=== PATIENT | female | born 1965 | race Caucasian/White ===

== ENCOUNTER → 2018-09-04 15:25 | Outpatient (CLI) | payer BC, SELFPAY ==
[2018-09-04 16:07] LABS: Prothrombin Time 10.3 seconds (9.4-11.8)
[2018-09-04 16:54] LABS: Alanine Aminotransferase 158 U/L (12-78); Albumin Level 3.5 gm/dL (3.4-5.0); Albumin/Globulin Ratio 0.9 (1.1-1.8); Alkaline Phosphatase 68 U/L (46-116); Anion Gap 14.3 mEq/L (5-15); Aspartate Amino Transferase 124 U/L (15-37); Bilirubin,Total 0.2 mg/dL (0.2-1.0); Blood Urea Nitrogen 12 mg/dL (7-18); Calcium 8.8 mg/dL (8.5-10.1); Carbon Dioxide 28 mmol/L (21.0-32.0); Chloride 101 mmol/L (98-107); Creatinine,Serum 0.74 mg/dL (0.55-1.02); Estimated Glomerular Filt Rate 82 ml/min (>60); Ferritin 145 ng/mL (8-388); GFR (African American) 99 ML/MIN (>60); Glucose 183 mg/dL (74-106); Potassium 4.3 mmoL/L (3.5-5.1); Sodium 139 mmol/L (136-145); Total Protein,Serum 7.5 gm/dL (6.4-8.2)
[2018-09-04 17:39] LABS: Basophils # 0.1 K/mm3 (0-0.2); Basophils % 0.6 % (0.1-2.0); Eosinophils # 0.2 K/mm3 (0.0-0.4); Eosinophils % 1.7 % (0.1-12.0); Hematocrit 41.8 % (37.0-47.0); Hemoglobin 13.3 g/dL (12.2-16.2); Lymphocytes # 2.4 K/mm3 (0.7-4.5); Lymphocytes % 25.4 K/mm3 (10-50); Mean Corpuscular HGB Conc 31.9 g/dL (31.8-35.4); Mean Corpuscular Hemoglobin 29.4 pg (27.0-31.2); Mean Corpuscular Volume 92.2 fl (81-99); Mean Platelet Volume 7.6 fl (7.4-10.4); Monocytes # 0.6 K/mm3 (0.1-1.0); Monocytes % 6.6 % (1.7-9.3); Neutrophils # 6.1 K/mm3 (1.8-7.8); Neutrophils % 65.7 % (37.0-80.0); Platelet Count 355 K/mm3 (142-424); Red Blood Count 4.54 M/mm3 (4.20-5.40); Red Cell Distribution Width 13.6 % (11.5-17.5); White Blood Count 9.3 K/mm3 (4.8-10.8)
[2018-09-06 06:52] LABS: Iron 45 ug/dL (27-159); UIBC 340 ug/dL (131-425)
[2018-09-06 07:12] LABS: Ceruloplasmin 28.8 mg/dL (19.0-39.0); Immunoglobulin A, Qn 265 mg/dL (87-352); Immunoglobulin G, Qn 1265 mg/dL (700-1600)
[2018-09-06 16:09] LABS: Hep A Ab, IgM Negative (Negative); Hepatitis B Core Antibody IgM Negative (Negative); Hepatitis B Surface Antigen Negative (Negative)
[2018-09-07 04:56] LABS: Hepatitis C Antibody <0.1 s/co ratio (0.0-0.9); Immunoglobulin M, Qn 150 mg/dL (26-217); Iron Saturation 12 % (15-55)
[2018-09-08 07:29] LABS: Angiotensin Converting Enzyme 32 U/L (14-82)
[2018-09-08 07:30] LABS: Actin (Smooth Muscle) Antibody 15 Units (0-19); Antinuclear Antibodies, IFA Negative (.); Deamidated Gliadin Abs, IgA 5 units (0-19); Deamidated Gliadin Abs, IgG 3 units (0-19); Endomysial IgA Antibody Negative (Negative); Liver-Kidney Microsomal Ab <1.0 Units (0.0-20.0); Mitochondrial (M2) Antibody <20.0 Units (0.0-20.0); Tissue Transglutaminase IgA Ab <2 U/mL (0-3); Tissue Transglutaminase IgG Ab <2 U/mL (0-5)
[2018-09-08 10:16] LABS: ALT (SGPT) P5P 145 IU/L (0-40); AST (SGOT) P5P 142 IU/L (0-40); Alpha 2-Macroglobulins, Qn 179 mg/dL (110-276); Apolipoprotein A-1 142 mg/dL (116-209); Bilirubin, Total 0.1 mg/dL (0.0-1.2); Cholesterol, Total 185 mg/dL (100-199); Fibrosis Score 0.05 (0.00-0.21); GGT 52 IU/L (0-60); Glucose 186 mg/dL (65-99); Haptoglobin 279 mg/dL (34-200); NASH Score 0.75 (0.25); Steatosis Score 0.91 (0.00-0.30); Triglycerides 258 mg/dL (0-149)
[2018-09-09 12:39] LABS: Reticulin IgA Antibody Negative titer (Neg:<1:2.5)
[2018-09-10 15:21] LABS: Alpha-1-Antitrypsin 146 mg/dL (90-200)
== END ==
PROVIDERS: Visit Provider Nurse Practitioner Acute Care
DX: R94.5 Abnormal results of liver function studies (principal)
CPT/HCPCS: 36415; 80053; 80074; 81256; 82103; 82104; 82164; 82390; 82728; 82784; 83516; 83540; 83550; 85025; 85610; 86038; 86255; 86256; 86376

== ENCOUNTER → 2018-09-11 08:20 | Outpatient (CLI) | payer BC, SELFPAY ==
--- NOTE | 2018-09-11 08:24 | US_ITS ---
US abdomen limited History:Elevated liver enzymes Ordering Physician:Radah Brown Patient Age: 53 years Comparison:07/08/2017 Findings: Pancreas:Unremarkable. No obvious mass or abnormal fluid collection. No ductal dilatation Liver:Fatty liver. No ductal dilatation or obvious liver lesions. Appropriate directional blood flow within a nondilated portal vein Right Kidney:Unremarkable. Normal size and echogenicity. No hydronephrosis Gallbladder: Status post cholecystectomy. Common bile duct is normal 2 mm. IMPRESSION: 1. Fatty liver. 2. Otherwise negative right upper quadrant ultrasound
== END ==
PROVIDERS: PCP Internal Medicine; Visit Provider Nurse Practitioner Acute Care
DX: R94.5 Abnormal results of liver function studies (principal)
CPT/HCPCS: 76705

== ENCOUNTER → 2021-11-20 08:35 | Outpatient (CLI) | payer BC, SELFPAY | PROVIDERS: Visit Provider Nurse Practitioner | DX: Z20.822 Contact with and (suspected) exposure to COVID-19 (principal) | CPT/HCPCS: C9803; U0003; U0005 ==

== ENCOUNTER → 2021-11-23 12:08 | Outpatient (CLI) | payer BC, SELFPAY | PROVIDERS: Visit Provider Nurse Practitioner | DX: Z20.822 Contact with and (suspected) exposure to COVID-19 (principal) | CPT/HCPCS: C9803; U0003; U0005 ==

== ENCOUNTER → 2021-12-10 14:48 | Outpatient (CLI) | payer BC, SELFPAY ==
[2021-12-10 17:02] LABS: Basophils # 0.1 K/mm3 (0-0.2); Basophils % 0.9 % (0.1-2.0); Eosinophils # 0.2 K/mm3 (0.0-0.4); Eosinophils % 2.4 % (0.1-12.0); Hematocrit 42.4 % (37.0-47.0); Hemoglobin 13.3 g/dL (12.2-16.2); Lymphocytes # 3.1 K/mm3 (0.7-4.5); Lymphocytes % 36.6 % (10-50); Mean Corpuscular HGB Conc 31.4 g/dL (31.8-35.4); Mean Corpuscular Volume 95.3 fl (81-99); Mean Platelet Volume 9.4 fl (7.4-10.4); Monocytes # 0.6 K/mm3 (0.1-1.0); Monocytes % 7.3 % (1.7-9.3); Neutrophils # 4.5 K/mm3 (1.8-7.8); Neutrophils % 52.9 % (37.0-80.0); Platelet Count 349 K/mm3 (142-424); Red Blood Count 4.45 M/mm3 (4.20-5.40); Red Cell Distribution Width 13.7 % (11.5-17.5); White Blood Count 8.6 K/mm3 (4.8-10.8)
[2021-12-10 18:13] LABS: Hemoglobin A1C 7.6 % (4.0-6.0)
[2021-12-10 18:16] LABS: Alanine Aminotransferase 110 U/L (12-78); Albumin Level 4.1 g/dl (3.5-5.0); Albumin/Globulin Ratio 1.4 (1.1-1.8); Alkaline Phosphatase 59 U/L (38-126); Anion Gap 12.5 mEq/L (5-15); Aspartate Amino Transferase 128 U/L (14-36); Bilirubin,Total 0.4 mg/dl (0.2-1.3); Blood Urea Nitrogen 15 mg/dl (7-17); Calcium 9.2 mg/dl (8.4-10.2); Carbon Dioxide 30 mmol/L (22.0-30.0); Chloride 101 mmol/L (98-107); Chol/HDL Ratio 3.8 (1-3.5); Cholesterol 169 mg/dl (140-200); Estimated Glomerular Filt Rate 87 ml/min (>60); GFR (African American) 105 ML/MIN (>60); Globulin 2.9 g/dL (1.3-3.2); Glucose 133 mg/dl (74-100); HDL Cholesterol 45 mg/dl (40-60); Potassium 4.5 mmoL/L (3.5-5.1); Sodium 139 mmol/L (136-145); Triglycerides 118 mg/dl (30-150); VLDL Cholesterol 24 mg/dL (0-40)
[2021-12-10 18:28] LABS: Direct LDL Cholesterol 103.02 mg/dL (100-129)
== END ==
PROVIDERS: Visit Provider Internal Medicine
DX: R79.89 Other specified abnormal findings of blood chemistry (principal)
CPT/HCPCS: 80053; 80061; 83036; 85025

== ENCOUNTER → 2022-05-13 13:21 | Outpatient (CLI) | payer BC, SELFPAY ==
[2022-05-13 14:34] LABS: Alanine Aminotransferase 97 U/L (12-78); Albumin Level 3.9 g/dl (3.5-5.0); Albumin/Globulin Ratio 1.3 (1.1-1.8); Alkaline Phosphatase 69 U/L (38-126); Anion Gap 12.5 mEq/L (5-15); Aspartate Amino Transferase 106 U/L (14-36); Bilirubin,Total 0.2 mg/dl (0.2-1.3); Blood Urea Nitrogen 13 mg/dl (7-17); Calcium 8.9 mg/dl (8.4-10.2); Carbon Dioxide 26 mmol/L (22.0-30.0); Chloride 101 mmol/L (98-107); Chol/HDL Ratio 3.3 (1-3.5); Cholesterol 160 mg/dl (140-200); Estimated Glomerular Filt Rate 86 ml/min (>60); GFR (African American) 104 ML/MIN (>60); Glucose 143 mg/dl (74-100); HDL Cholesterol 48 mg/dl (40-60); Potassium 4.5 mmoL/L (3.5-5.1); Sodium 135 mmol/L (136-145); Total Protein,Serum 6.9 g/dl (6.3-8.2); Triglycerides 110 mg/dl (30-150); VLDL Cholesterol 22 mg/dL (0-40)
[2022-05-13 14:40] LABS: Creatinine,Urine Random 174 mg/dL (Not Estab.)
[2022-05-13 14:44] LABS: Microalbumin/Creatinine Ratio 8.5
[2022-05-13 14:45] LABS: Direct LDL Cholesterol 95.32 mg/dL (100-129)
[2022-05-13 15:02] LABS: Hemoglobin A1C 7.4 % (4.0-6.0)
== END ==
PROVIDERS: PCP Internal Medicine; Visit Provider Internal Medicine
DX: E11.29 Type 2 diabetes mellitus with other diabetic kidney complication (principal); E78.5 Hyperlipidemia, unspecified; R80.1 Persistent proteinuria, unspecified; K21.9 Gastro-esophageal reflux disease without esophagitis
CPT/HCPCS: 80053; 80061; 82043; 82570; 83036

== ENCOUNTER → 2022-11-25 12:24 | Outpatient (CLI) | payer BC, SELFPAY ==
[2022-11-25 13:23] LABS: Basophils # 0.1 K/mm3 (0-0.2); Basophils % 0.7 % (0.1-2.0); Eosinophils # 0.2 K/mm3 (0.0-0.4); Eosinophils % 2.4 % (0.1-12.0); Hemoglobin 13.7 g/dL (12.2-16.2); Lymphocytes # 2.7 K/mm3 (0.7-4.5); Mean Corpuscular HGB Conc 33.4 g/dL (31.8-35.4); Mean Corpuscular Volume 89.8 fl (81-99); Mean Platelet Volume 9.4 fl (7.4-10.4); Monocytes # 0.5 K/mm3 (0.1-1.0); Monocytes % 6.6 % (1.7-9.3); Neutrophils # 4.3 K/mm3 (1.8-7.8); Neutrophils % 55.2 % (37.0-80.0); Platelet Count 310 K/mm3 (142-424); Red Blood Count 4.56 M/mm3 (4.20-5.40); Red Cell Distribution Width 13.7 % (11.5-17.5); White Blood Count 7.8 K/mm3 (4.8-10.8)
[2022-11-25 13:52] LABS: Hemoglobin A1C 8.3 % (4.0-6.0)
[2022-11-25 14:55] LABS: Alanine Aminotransferase 175 U/L (12-78); Albumin Level 4.2 g/dl (3.5-5.0); Albumin/Globulin Ratio 1.3 (1.1-1.8); Alkaline Phosphatase 79 U/L (38-126); Anion Gap 13.5 mEq/L (5-15); Aspartate Amino Transferase 216 U/L (14-36); Bilirubin,Total 0.4 mg/dl (0.2-1.3); Blood Urea Nitrogen 11 mg/dl (7-17); Calcium 8.8 mg/dl (8.4-10.2); Carbon Dioxide 27 mmol/L (22.0-30.0); Chloride 103 mmol/L (98-107); Chol/HDL Ratio 3.7 (1-3.5); Cholesterol 161 mg/dl (140-200); Estimated Glomerular Filt Rate 86 ml/min (>60); GFR (African American) 104 ML/MIN (>60); Globulin 3.3 g/dL (1.3-3.2); Glucose 164 mg/dl (74-100); HDL Cholesterol 44 mg/dl (40-60); Potassium 4.5 mmoL/L (3.5-5.1); Sodium 139 mmol/L (136-145); Total Protein,Serum 7.5 g/dl (6.3-8.2); Triglycerides 135 mg/dl (30-150); VLDL Cholesterol 27 mg/dL (0-40)
[2022-11-25 15:05] LABS: Direct LDL Cholesterol 85.27 mg/dL (100-129)
[2022-11-25 15:25] LABS: Thyroid Stimulating Hormone 3.84 uIU/mL (0.465-4.68)
== END ==
PROVIDERS: PCP Internal Medicine; Visit Provider Internal Medicine
DX: E11.29 Type 2 diabetes mellitus with other diabetic kidney complication (principal); R80.1 Persistent proteinuria, unspecified; E78.5 Hyperlipidemia, unspecified; K76.0 Fatty (change of) liver, not elsewhere classified; K21.9 Gastro-esophageal reflux disease without esophagitis; F41.9 Anxiety disorder, unspecified; J45.909 Unspecified asthma, uncomplicated
CPT/HCPCS: 80053; 80061; 83036; 84443; 85025

== ENCOUNTER → 2022-12-25 08:06 | Outpatient (CLI) | payer BC, SELFPAY ==
[2022-12-27 23:11] LABS: ALT (SGPT) P5P 111 IU/L (0-40); AST (SGOT) P5P 96 IU/L (0-40); Alpha 2-Macroglobulins, Qn 243 mg/dL (110-276); Apolipoprotein A-1 114 mg/dL (116-209); Bilirubin, Total 0.2 mg/dL (0.0-1.2); Cholesterol, Total 128 mg/dL (100-199); Fibrosis Score 0.23 (0.00-0.21); Fibrosis Stage F0-F1 (.); GGT 56 IU/L (0-60); Glucose 144 mg/dL (70-99); Haptoglobin 185 mg/dL (33-346); NASH Score 0.75 (0.25); Steatosis Score 0.84 (0.00-0.30); Triglycerides 118 mg/dL (0-149)
== END ==
PROVIDERS: PCP Internal Medicine; Visit Provider Internal Medicine Gastroenterology
DX: K75.81 Nonalcoholic steatohepatitis (NASH) (principal); R94.5 Abnormal results of liver function studies; Z86.010 Personal history of colon polyps
CPT/HCPCS: 36415

== ENCOUNTER → 2023-02-24 12:41 | Outpatient (CLI) | payer BC, SELFPAY ==
[2023-02-24 15:04] LABS: Hemoglobin A1C 5.9 % (4.0-6.0)
== END ==
PROVIDERS: PCP Internal Medicine; Visit Provider Internal Medicine
DX: E11.29 Type 2 diabetes mellitus with other diabetic kidney complication (principal)
CPT/HCPCS: 83036

== ENCOUNTER → 2023-06-04 14:42 | Outpatient (CLI) | payer BC, SELFPAY ==
[2023-06-04 15:44] LABS: Basophils # 0.1 K/mm3 (0-0.2); Basophils % 0.6 % (0.1-2.0); Eosinophils # 0.2 K/mm3 (0.0-0.4); Eosinophils % 2.2 % (0.1-12.0); Hemoglobin 13.9 g/dL (12.2-16.2); Lymphocytes # 3.2 K/mm3 (0.7-4.5); Mean Corpuscular HGB Conc 32.4 g/dL (31.8-35.4); Mean Corpuscular Hemoglobin 29.6 pg (27.0-31.2); Mean Corpuscular Volume 91.3 fl (81-99); Mean Platelet Volume 9.7 fl (7.4-10.4); Monocytes # 0.6 K/mm3 (0.1-1.0); Monocytes % 6.9 % (1.7-9.3); Neutrophils # 5.1 K/mm3 (1.8-7.8); Neutrophils % 55.3 % (37.0-80.0); Platelet Count 392 K/mm3 (142-424); Red Blood Count 4.71 M/mm3 (4.20-5.40); Red Cell Distribution Width 13.4 % (11.5-17.5); White Blood Count 9.2 K/mm3 (4.8-10.8)
[2023-06-04 16:09] LABS: Alanine Aminotransferase 33 U/L (12-78); Albumin Level 4.5 g/dl (3.5-5.0); Albumin/Globulin Ratio 1.4 (1.1-1.8); Alkaline Phosphatase 68 U/L (38-126); Anion Gap 15.8 mEq/L (5-15); Aspartate Amino Transferase 39 U/L (14-36); Bilirubin,Total 0.3 mg/dl (0.2-1.3); Blood Urea Nitrogen 14 mg/dl (7-17); Calcium 9.3 mg/dl (8.4-10.2); Carbon Dioxide 28 mmol/L (22.0-30.0); Chloride 103 mmol/L (98-107); Chol/HDL Ratio 3.6 (1-3.5); Cholesterol 160 mg/dl (140-200); Estimated Glomerular Filt Rate 74 ml/min (>60); GFR (African American) 89 ML/MIN (>60); Globulin 3.2 g/dL (1.3-3.2); Glucose 92 mg/dl (74-100); HDL Cholesterol 45 mg/dl (40-60); Potassium 4.8 mmoL/L (3.5-5.1); Sodium 142 mmol/L (136-145); Total Protein,Serum 7.7 g/dl (6.3-8.2); Triglycerides 155 mg/dl (30-150); VLDL Cholesterol 31 mg/dL (0-40)
[2023-06-04 16:19] LABS: Direct LDL Cholesterol 80.49 mg/dL (100-129)
[2023-06-04 17:54] LABS: Hemoglobin A1C 5.8 % (4.0-6.0)
== END ==
PROVIDERS: PCP Internal Medicine; Visit Provider Internal Medicine
DX: E11.29 Type 2 diabetes mellitus with other diabetic kidney complication (principal); E78.5 Hyperlipidemia, unspecified; R80.1 Persistent proteinuria, unspecified; J45.909 Unspecified asthma, uncomplicated; K21.9 Gastro-esophageal reflux disease without esophagitis; K75.81 Nonalcoholic steatohepatitis (NASH)
CPT/HCPCS: 80053; 80061; 83036; 85025

== ENCOUNTER 2024-01-21 10:58 | Outpatient (CLI) | payer BC, SELFPAY ==
[2024-01-21 12:51] LABS: Chloride 102 mmol/L (98-107); Potassium 4.5 mmoL/L (3.5-5.1); Sodium 139 mmol/L (136-145)
[2024-01-21 12:54] LABS: Alanine Aminotransferase 39 U/L (12-78); Albumin Level 4.4 g/dl (3.5-5.0); Albumin/Globulin Ratio 1.4 (1.1-1.8); Alkaline Phosphatase 69 U/L (38-126); Anion Gap 13.5 mEq/L (5-15); Aspartate Amino Transferase 42 U/L (14-36); Bilirubin,Total 0.4 mg/dl (0.2-1.3); Blood Urea Nitrogen 15 mg/dl (7-17); Calcium 9.6 mg/dl (8.4-10.2); Carbon Dioxide 28 mmol/L (22.0-30.0); Chol/HDL Ratio 5.1 (1-3.5); Cholesterol 223 mg/dl (140-200); Estimated Glomerular Filt Rate 74 ml/min (>60); GFR (African American) 89 ML/MIN (>60); Globulin 3.1 g/dL (1.3-3.2); Glucose 122 mg/dl (74-100); HDL Cholesterol 44 mg/dl (40-60); Total Protein,Serum 7.5 g/dl (6.3-8.2); Triglycerides 187 mg/dl (30-150); VLDL Cholesterol 37 mg/dL (0-40)
[2024-01-21 13:22] LABS: Direct LDL Cholesterol 114.65 mg/dL (100-129)
[2024-01-21 14:28] LABS: Hemoglobin A1C 6.5 % (4.0-6.0)
[2024-01-21 14:57] LABS: Creatinine,Urine Random 162 mg/dL (Not Estab.)
[2024-01-21 15:01] LABS: Microalbumin/Creatinine Ratio 7.8
== END 2024-01-21 23:59 ==
LOC: LAB.DROPOF 10:59
PROVIDERS: PCP Internal Medicine; Visit Provider Internal Medicine
DX: E11.29 Type 2 diabetes mellitus with other diabetic kidney complication (principal); E78.5 Hyperlipidemia, unspecified; J45.909 Unspecified asthma, uncomplicated; K21.9 Gastro-esophageal reflux disease without esophagitis; K75.81 Nonalcoholic steatohepatitis (NASH); Z68.41 Body mass index [BMI] 40.0-44.9, adult
CPT/HCPCS: 80053; 80061; 82043; 82570; 83036

== ENCOUNTER 2024-03-08 08:58 | Outpatient (CLI) | payer BC, SELFPAY ==
[2024-03-08 09:19] LABS: MANUAL DIFFERENTIAL MANUAL DIFFERENTIAL (MANUAL DIFF)
[2024-03-08 09:45] LABS: Basophils # 0.1 K/mm3 (0-0.2); Basophils % 0.9 % (0.1-2.0); Eosinophils # 0.2 K/mm3 (0.0-0.4); Eosinophils % 2.6 % (0.1-12.0); Hematocrit 42.1 % (37.0-47.0); Hemoglobin 13.4 g/dL (12.2-16.2); Lymphocytes # 3.2 K/mm3 (0.7-4.5); Lymphocytes % 37.6 % (10-50); Mean Corpuscular HGB Conc 31.7 g/dL (31.8-35.4); Mean Corpuscular Hemoglobin 29.6 pg (27.0-31.2); Mean Corpuscular Volume 93.2 fl (81-99); Mean Platelet Volume 7.8 fl (7.4-10.4); Monocytes # 0.6 K/mm3 (0.1-1.0); Monocytes % 7.4 % (1.7-9.3); Neutrophils # 4.4 K/mm3 (1.8-7.8); Neutrophils % 51.5 % (37.0-80.0); Platelet Count 366 K/mm3 (142-424); Red Blood Count 4.52 M/mm3 (4.20-5.40); Red Cell Distribution Width 14.6 % (11.5-17.5); White Blood Count 8.5 K/mm3 (4.8-10.8)
[2024-03-08 10:18] LABS: Alanine Aminotransferase 37 U/L (12-78); Albumin Level 4.2 g/dl (3.5-5.0); Albumin/Globulin Ratio 1.4 (1.1-1.8); Alkaline Phosphatase 61 U/L (38-126); Anion Gap 12.6 mEq/L (5-15); Aspartate Amino Transferase 38 U/L (14-36); Bilirubin,Total 0.4 mg/dl (0.2-1.3); Blood Urea Nitrogen 13 mg/dl (7-17); Calcium 9.8 mg/dl (8.4-10.2); Carbon Dioxide 30 mmol/L (22.0-30.0); Chloride 104 mmol/L (98-107); Estimated Glomerular Filt Rate 86 ml/min (>60); GFR (African American) 104 ML/MIN (>60); Globulin 3.1 g/dL (1.3-3.2); Glucose 129 mg/dl (74-100); Potassium 4.6 mmoL/L (3.5-5.1); Sodium 142 mmol/L (136-145); Total Protein,Serum 7.3 g/dl (6.3-8.2)
[2024-03-08 11:14] LABS: Eosinophils % 2 % (0-3); Lymphocytes % 47 % (10-50); Monocytes % 3 % (2-9); Neutrophils % 48 % (42-76); Platelet Estimate Normal; RBC Morphology Normal; Total Cells Counted 100
[2024-03-11 15:34] LABS: Fibrosis Score 0.14; Fibrosis Stage F0-NO FIBROSIS; Steatosis Score 0.61
[2024-03-11 15:35] LABS: Alpha 2-Macroglobulins, Qn 279; NASH Grade N2 MODERATE NASH; NASH Score 0.52; Steatosis Grade S2-S3
[2024-03-11 15:36] LABS: Apolipoprotein A-1 149; Haptoglobin 260
[2024-03-11 15:37] LABS: Bilirubin, Total 0.2; GGT 28
[2024-03-11 15:38] LABS: ALT (SGPT) P5P 30; AST (SGOT) P5P 30
[2024-03-11 15:39] LABS: Cholesterol, Total 174; Glucose 133; Triglycerides 168
== END 2024-03-08 23:59 | disposition home or self-care (01) ==
LOC: LAB.DROPOF 08:59
PROVIDERS: PCP Internal Medicine; Visit Provider Internal Medicine
DX: K75.81 Nonalcoholic steatohepatitis (NASH) (principal); K71.9 Toxic liver disease, unspecified
CPT/HCPCS: 80053; 85007; 85014; 85018; 85048; 85049

== ENCOUNTER 2024-04-27 16:14 | Outpatient (CLI) | payer BC, SELFPAY ==
[2024-04-27 14:38] LABS: Hemoglobin A1C 6.3 % (4.0-6.0)
== END 2024-04-27 23:59 | disposition home or self-care (01) ==
LOC: LAB.DROPOF 16:14
PROVIDERS: PCP Internal Medicine; Visit Provider Internal Medicine
DX: E11.22 Type 2 diabetes mellitus with diabetic chronic kidney disease (principal); Z79.84 Long term (current) use of oral hypoglycemic drugs; N18.2 Chronic kidney disease, stage 2 (mild)
CPT/HCPCS: 83036

== ENCOUNTER 2024-05-13 16:24 | Outpatient (CLI) | payer BC, SELFPAY ==
--- NOTE | 2024-05-13 16:28 | CA_ITS ---
FINAL REPORT TECHNIQUE: Color Doppler, duplex Doppler and compression sonography of the right lower extremity venous system was performed. CLINICAL HISTORY: Right calf pain X 3 WEEKSDM, HTN, HLD FINDINGS: There is no evidence of deep venous thrombosis from the level of the groin to the calf. The veins are patent and compressible. IMPRESSION: No evidence of deep venous thrombosis right lower extremity. Reviewed, Interpreted and Dictated by Rashel Castro III, MD Transcribed by Lakia Gallardo Authenticated and [facility]
== END 2024-05-13 23:59 | disposition home or self-care (01) ==
LOC: RT 16:25
PROVIDERS: PCP Internal Medicine; Visit Provider Internal Medicine
DX: M79.661 Pain in right lower leg (principal)
CPT/HCPCS: 93971

== ENCOUNTER 2024-08-09 14:24 | Outpatient (CLI) | payer BC, SELFPAY ==
[2024-08-09 14:19] LABS: Hemoglobin A1C 6.5 % (4.0-6.0)
[2024-08-09 14:24] LABS: Alanine Aminotransferase 43 U/L (12-78); Alkaline Phosphatase 52 U/L (38-126); Aspartate Amino Transferase 44 U/L (14-36); Bilirubin,Total 0.6 mg/dl (0.2-1.3); Blood Urea Nitrogen 12 mg/dl (7-17); Calcium 9.5 mg/dl (8.4-10.2); Chloride 103 mmol/L (98-107); Chol/HDL Ratio 4.2 (1-3.5); Cholesterol 192 mg/dl (140-200); Estimated Glomerular Filt Rate 86 ml/min (>60); GFR (African American) 104 ML/MIN (>60); Glucose 119 mg/dl (74-100); HDL Cholesterol 46 mg/dl (40-60); Potassium 4.4 mmoL/L (3.5-5.1); Sodium 137 mmol/L (136-145); Total Protein,Serum 7.2 g/dl (6.3-8.2); Triglycerides 186 mg/dl (30-150); VLDL Cholesterol 37 mg/dL (0-40)
[2024-08-09 14:25] LABS: Albumin Level 4.3 g/dl (3.5-5.0); Albumin/Globulin Ratio 1.5 (1.1-1.8); Anion Gap 11.4 mEq/L (5-15); Carbon Dioxide 27 mmol/L (22.0-30.0); Globulin 2.9 g/dL (1.3-3.2)
[2024-08-09 14:36] LABS: Direct LDL Cholesterol 100.76 mg/dL (100-129)
== END 2024-08-09 23:59 | disposition home or self-care (01) ==
LOC: LAB.DROPOF 14:25
PROVIDERS: PCP Internal Medicine; Visit Provider Internal Medicine
DX: N18.2 Chronic kidney disease, stage 2 (mild) (principal); E11.22 Type 2 diabetes mellitus with diabetic chronic kidney disease; I10 Essential (primary) hypertension; E78.5 Hyperlipidemia, unspecified; Z79.84 Long term (current) use of oral hypoglycemic drugs
CPT/HCPCS: 80053; 80061; 83036

== ENCOUNTER 2025-04-15 08:49 | Outpatient (CLI) | payer BC, SELFPAY ==
--- OUTSIDE RECORDS SUMMARY | 2025-04-15 08:53 | XMS_ITS | Data Portability ---
Author Organization [facility] Cayey TANMAY Berg [place] Address [address] [facility] [address] [place] [address] Assessment Encounter Date Assessment Date Assessment LastModified by Organization Details LastModified Time 12/23/2018 12/23/2018 SURGERY DATE: 12/23/2018 PREOPERATIVE DIAGNOSES: 1. Abnormal uterine bleeding. 2. Perimenopausal menorrhagia. POSTOPERATIVE DIAGNOSES: 1. Abnormal uterine bleeding. 2. Perimenopausal menorrhagia. PROCEDURE: Hysteroscopy with D and C and NovaSure ablation. ANESTHESIA: General with an LMA for airway protection. ESTIMATED BLOOD LOSS: Minimal. I'S AND O'S: Please see anesthesia record. COMPLICATIONS: None. FINDINGS: Enlarged uterus. No evidence of fibroids, polyps, Asherman syndrome or uterine anomaly. Additional findings included normal appearing external genitalia. No cystocele or rectocele. Vagina well rugated without abnormalities and ectocervix without abnormalities. SPECIMEN: Included endometrial curettings and endocervical curettings. SURGEON: Monica Martinez MD INDICATIONS: Ms. Vianney Ramirez is a 53-year-old 2, para 1 whose has had a vasectomy for contraception. The patient has been seen at the [facility] of [facility] [employer] and she has been diagnosed with abnormal uterine bleeding with perimenopausal menorrhagia. An ultrasound was done and demonstrated a slightly enlarged uterus measuring 9.5 x 5.8 x 5.9. The lining was 13.5 mm and the ovaries could not be visualized. The radiologist interpreted the ultrasound as generous endometrium. At this time, the patient is admitted for hysteroscopy with D and C and NovaSure ablation and she understands the risks and benefits of the procedure. She has signed the consent. She is aware of the mode of anesthesia, the need for preop antibiotics and the need for DVT prophylaxis. She has signed a House Bill 1 form and a [facility] report has been run. OPERATIVE NOTE: The patient was taken to the operating room in a dorsal supine position. She was then placed on the operating room table where she was given general anesthesia and an LMA for airway protection. She was then placed in a modified lithotomy position with her legs in candy cane stirrups. At this time, she was prepped and draped in the usual sterile fashion. A Rodriguez catheter was placed into her bladder to allow continuous urinary drainage. One sided Graves speculum was placed inside the vagina, single tooth tenaculum was applied to anterior lip of the cervix. Cervix was then progressively dilated to a 7-8 mm size dilator. We then advanced the hysteroscope through the ectocervix into the endocervix and into the endometrial cavity. Findings were as already mentioned under the portion of the OP note. Each tubal ostia was easily visualized. We decided not to do a MyoSure and then we withdrew the operative hysteroscope. At this time, I then used the sponge on a stick to wipe out the vagina, used a small sharp endocervical curette, scraped all surfaces of the cervix starting at the 12 o'clock position rotating in a clockwise fashion and then placing the tissue on Telfa pad. We used a small polyp forceps to remove any adherent tissue from the ectocervix and added it to the specimen. At this time, I sounded the uterus and then I used sharp uterine curette starting at the 12 o'clock position. I then scraped all surfaces of the uterine cavity rotating in a clockwise fashion and I did this very vigorously so that we would be at the level of the basalis. I then removed the tissue from the posterior fornix by using a spoon and sent this as our second specimen. I sounded the uterus again, measured the length of the cervix, calculated the length for the NovaSure device, placed the NovaSure device into the uterine cavity, push it to the fundus, pulled back towards the cervix, rotated 90 degrees in each direction so that the device could open and we could calculate the width. Once the width was calculated we set that on the machine. I then performed a cavity assessment, enabled the machine and then we performed a treatment course. At the completion of treatment the NovaSure device was removed. The operative hysteroscope was reintroduced through the cervix into the uterine cavity. A well-ablated endometrium was noted with the cervix was noted as well. The cervix itself was not ablated. At this time, we removed the operative hysteroscope, used the sponge on a stick to wipe out the vagina and at this time we removed the single tooth tenaculum, applied pressure with the sponge on a stick to the anterior lip of the cervix, minimal bleeding was noted. The speculum was removed. The Rodriguez catheter was removed. The patient was returned to the dorsal supine position and taken to the recovery room in stable condition. [email or web address] Not available 12/28/2018 08:27:13 Plan of Treatment Reminders Order Date Submit Date Provider Last Modified By Organization Details Last Modified Time Details Appointments None recorded. Lab FSH (follicle- stimulatin g hormone), serum 2017 [facility], [address] [place] [address], [id number], 8 17:14:09 estradiol, serum 2017 018 [facility], [address] [place] [address], [address], 8 17:14:10 lh (luteinizi ng hormone), serum 2017 018 [facility], [address] [place] [address], [address], 8 17:14:08 TSH, serum or plasma 2017 [facility], [address] [place] [address], [id number], 8 17:15:48 T4, free, serum 2017 018 [facility], [address] [place] [address], [address], 8 17:54:24 Referral None recorded. Procedures None recorded. Surgeries dilation and curettage with hysterosco py (SURG) 2018 019 [email or web address] Not available 9 08:44:17 Imaging US, transvagin al 2017 018 anderson d10 [facility] Radiology [facility], [address] [facility], [place], [address], 8 13:10:20 Medication Orders ibuprofen 600 mg tablet 2018 019 INTERFACE [facility], [address], [address], 9 11:18:41 Zofran 4 mg tablet 2018 019 INTERFACE [facility], [address], [address], 9 11:18:38 Provera 5 mg tablet 2018 019 [email or web address] [facility], [address], [address], 9 12:01:59 metformin ER 500 mg tablet,ext ended release 24 hr 2018 019 INTERFACE [facility], [address], [address], 9 13:35:53 Patient TargetsNo targets recorded. Patient Instructions Encounter Date Encounter Id Patient Instructions Last Modified By Organization Details Last Modified Time 09/18/2018 [id number] learning about cervical cancer screening Not available 09/18/2018 10:12:29 Spent 15 total minutes with the patient today. Greater than 50% of this time was spent counseling/coordi nation of care as documented in my assessment and plan above. Not available 09/18/2018 10:11:20 11/13/2018 [id number] heavy menstrual periods: care instructions [email or web address] Not available 11/13/2018 13:35:48 Nonalcoholic Fatty Liver Disease (NAFLD): Care Instructions [email or web address] Not available 11/13/2018 13:38:23 visit 15-20 min and > 50 % spent in counseling Not available 11/15/2018 08:02:50 12/23/2018 [id number] acute pain after surgery: care instructions [email or web address] Not available 12/23/2018 11:08:02 01/07/2019 [id number] body mass index: care instructions [email or web address] Not available 01/10/2019 12:03:18 Body Mass Index: Care Instructions-LC [email or web address] Not available 01/10/2019 12:03:18 learning about healthy weight Not available 01/10/2019 12:03:18 heavy menstrual periods: care instructions [email or web address] Not available 01/07/2019 10:11:40 post op visit Not available 12:03:17 03/08/2019 [id number] heavy menstrual periods: care instructions [email or web address] Not available 03/21/2019 19:40:14 brief visit - < 15 min entirely spent in counseling [email or web address] Not available 03/21/2019 19:39:58 Reason for Referral None Reported. Results Created Date Observation Date Name Description Value Unit Range Abnormal Flag Note LastModifiedBy Organization Detail LastModifiedTime 09/18/20 18 09/18/2018 lh (lute inizi ng hormo ne), serum lutenizing hormone (LH) 9.4 mIU/m L 1.0-95 .6 normal LH EXPEC CARMELLA VALUE S WOMEN : FOLLI CULAR PHASE 2.4-1 2.6 mIU/m L OVULA TION PHASE 14.0- 95.6 mIU/m L LUTEA L PHASE 1.0-1 1.4 mIU/m L POSTM ENOPA USE 7.7-5 8.5 mIU/m L Not Available [facility] [address] [facility], [place], [address], 09/18/2018 17:14:08 09/18/20 18 09/18/2018 FSH (foll icle- stimu latin g hormo ne), serum follicle stim. hormone 10.6 mIU/m L 1.7-13 4.8 normal FSH EXPEC CARMELLA VALUE S FEMAL ES: FOLLI CULAR PHASE : 3.5 - 12.5 MIU/M L OVULA TION PHASE : 4.7 - 21.5 MIU/M L LUTEA L PHASE : 1.7 - 7.7 MIU/M L POST MENOP AUSE: 25.8 - 134.8 MIU/M L Not Available [facility] [address] [place], [address], 09/18/2018 17:14:09 09/18/20 18 09/18/2018 estra diol, serum estradiol 39.7 pg/mL 0.0-39 8.0 normal Refer ence range is based on non-p regna nt women . NOTE: Due to cross react ivity , the Dejuan Estra diol assay used by our labor myles reinoso not be order ed when monit oring estra diol level s in patie nts being treat ed with Fulve stran t. An alter melany metho d such as LC/MS , which is not expec carmella to show cross react ivity to Fulve harper tjatinder be used to measu re estra diol shanel ntrat ions. ESTRA DIOL EXPEC CARMELLA VALUE S HEALT HY WOMEN : FOLLI CULAR PHASE 12.4 - 233 pg/mL OVULA TION PHASE 41.0 - 398 pg/mL LUTEA L PHASE 22.3 - 341 pg/mL POSTM ENOPA USE < 5.0 - 138 pg/mL HEALT HY PREGN ANT WOMEN : 1st TRIME STER 154 - 3243 pg/mL 2nd TRIME STER 1561 - 21,28 0 pg/mL 3rd TRIME STER 8525 - > 30,00 0 pg/mL Not Available [facility] [address] [place], [address], 09/18/2018 17:14:10 09/18/20 18 09/18/2018 TSH, serum or plasm a TSH 1.700 uIU/m L 0.290- 5.500 normal Not Available [facility] [address] [place], [address], 09/18/2018 17:15:48 09/18/20 18 09/18/2018 T4, free, serum T4,free 0.99 NG/dL 0.93-1 .70 normal Not Available [facility] [address] [place], [address], 09/18/2018 17:54:24 12/23/19 19 12/23/[facility] surgical pathology procedure SEE BELOW Depar tment of Patho logy Surgi [facility] Patho logy Repor t NAME: BUNNY RAMIREZ PATH. :[id number] Copy to: Diagn osis: A) Endom etria l curet tings : Fragm ents of benig n endom etriu m with break down. B) Endoc ervic al curet tings : Benig n endoc ervic al tissu e witho ut speci fic patho logic alter ation . SOURC E OF SPECI MEN: ENDOM ETRIA L CURET TINGS ENDOC ERVIC AL CURET TINGS CLINI XIN INFOR MATIO N: ABNOR MAL UTERI NE BLEED ING FILIPPO RHAGI A Gross Descr iptio n: A) Recei wilber in forma star label ed with the patie nt's name and desig nated as endo metri al curet tings are multi ple fragm ents of red-t an tissu e admix ed with blood measu ring 2.5 x 2.5 x 0.6 cm in aggre gate. Entir juliana submi tted in one block . B) Recei wilber in forma star label ed with the patie nt's name and desig nated as endo cervi xin curet tings are multi ple fragm ents of red-t an tissu e admix ed with blood and mucus measu ring 2 x 1.3 x 0.1 cm in aggre gate. Entir juliana submi tted in one block . MT 12/23 03:39 PM Micro scopi c Descr iptio n: A micro scopi c exami natio n has been perfo rmed. OLGA FRIAS MD Rula d Out Date: 12/24 11:13 Page 1 of 1 Not Available [facility] [address] [place], [address], 12/24/2018 11:14:19 09/28/20 18 09/28/2018 US, trans vagin al [facility] [address] [place] [address] Mary segovia Name: VIANNEY segovia : [birth year] 65 Mary segovia Orderi ng Provid er: VALENCIA CARRASQUILLO RTY EXAM DATE: 2017 EXAM: US PELVIS MACHINIST TRANSV AGINAL CLINIC AL INFORM ATION: Abnorm al uterin e bleedi ng TECHNI QUE: Multip le sonogr aphic images of the pelvis were obtain ed throug h transv aginal route. COMPAR ORIN: None. FINDIN GS: UTERUS : Size = 9.5 x 5.8 x 5.9 cm. EMS thickn ess = 13.5 mm. Anteve rted, antefl exed, normal in size. No myomet rial abnorm ality seen. RIGHT ADNEXA : Ovary not visual ized LEFT ADNEXA : Ovary not visual ized CUL-DE -SAC: No fluid or mass IMPRES CYNDI: Genero us endome trium. Neithe r ovary visibl e Interp reted By: Jamie Cagle MD Electr onical ly Signed By: Jamie Cagle MD on 2017 8:53 AM [email or web address] [facility] [address], [place], [address], 09/30/2018 10:52:08 10/25/20 18 10/23/2018 MAMMO , scree arianna, tomos ynthe sis, bilat eral, w/ CAD No observ ation record ed. [facility] Surgery Scheduling [address], [place], [address], 10/26/2018 22:02:38 Result Notes None recorded. Problems No Known Problems Procedures Surgical History Date Name Laterality Status Provider Name and Address Organization Details Recorded Time 12/23/19 19 hysteroscopy completed Albertina Traore [facility] 01/07/2019 09:54:46 02/20/20 19 DILATION AND CURETTAGE WITH HYSTEROSCOPY (SURG) completed Ranjan Valdes [facility] 01/14/2019 08:48:07 10/23/20 18 Date of Last Mammogram completed Triny Moon [facility] 11/13/2018 12:57:02 02/02/20 18 Date of Last Colonoscopy completed Adela Mcgowan [facility] 09/18/2018 09:41:31 06/23/20 17 Pap Smear collection completed MONICA MARTINEZ MD [address] [place] [address], [address] 06/24/2017 13:19:03 06/23/20 17 Date of Last [facility] 09[facility]01 [facility] 09:52:20 [facility] 09:52:33 Imaging Results None recorded. Procedure Notes None recorded. Medical Equipment None Reported. Allergies Allergen ID Allergen Name Allergen Category Reaction Reaction Severity Criticality Documentation Date Start Date Code Code System Note Provider Name and Address Organization Details Recorded Time 543876 Prevacid medicatio n Not available Not available Not available 09/26/20162009 53494 RxNorm Comme nt: lynn swartz preva emily/chuckie eneri c;Cre ated By: Debra chacon Date: 2009 1:13: 49 PM; Not Available [facility] 6 13:16:40 [id number] Levaquin medicatio n Not available Not available Not available 09/26/20162006 79272 2 RxNorm Comme nt: Creat ed By: King Mary waltonCre ated Date: 9:55: 25 AM; Not Available [facility] 6 13:40:52 807306 Biaxin medicatio n Not available Not available Not available 09/26/20162006 44830 9 RxNorm Comme nt: Creat ed By: King Mary waltonCre ated Date: 9:55: 42 AM; Not Available [facility] 6 13:40:52 Medications Name Sig Start Date Stop Date Status Note LastModified by Organization Details LastModified Time Singulair 10 mg tablet Daily active Frequenc y: daily;Me dication Descript ion: monteluk ast; Dosage:1 ; Route:or al; refills: 5; Quantity :30 tablet Not Available Not Available Not Available metformin 500 mg tablet Take 1 tablet twice a day by oral route. 01/07 completed Not Available Not Available Not Available Multiple Vitamin capsule Daily active Duration : 30 days;Saran quency: daily;Me dication Descript ion: multivit milligan; Dosage:1 ; Route:or al; refills: 3; Quantity :100 capsule Not Available Not Available Not Available Claritin 10 mg tablet Daily active Frequenc y: daily;Me dication Descript ion: loratadi ne; Dosage:1 ; Route:or al; refills: 0; Quantity :30 tablet Not Available Not Available Not Available Diflucan 150 mg tablet Take 1 tablet every 72 hours by oral route. 2018 active Not Available Not Available Not Avai lable Provera 5 mg tablet Take 1 tablet every day by oral route for 7 days. 01/10 completed Not Available Not Available Not Available Zofran 4 mg tablet Take 1 tablet every 6 hours by oral route for 3 days. 2018 active Not Available Not Available Not Avai lable ibuprofen 600 mg tablet Take 1 tablet every 6 hours by oral route for 10 days. 2018 active Not Available Not Available Not Avai lable metformin ER 500 mg tablet,ex tended release 24 hr Take 1 tablet every day by oral route at bedtime for 30 days. 2018 active Not Available Not Available Not Avai lable Lexapro 10 mg tablet Daily active Duration : 30 days;Saran quency: daily;Me dication Descript ion: escitalo pram; Dosage:1 ; Route:or al; refills: 5; Quantity :30 tablet Not Available Not Available Not Available Dexilant 30 mg capsule, delayed release Daily active Frequenc y: daily;Me dication Descript ion: dexlanso prazole; Dosage:1 ; Route:or al; refills: 0 Not Available Not Available Not Available Vitals Date Recorded Body height Body mass index (BMI) Body weight Systolic blood pressure Diastolic blood pressure Provider Name and Address Organization Details Last Updated DateTime 11/13/2018 165.1 cm 43.2 kg/m2 270953.2 2 g 122 mm[Hg] 84 mm[Hg] Triny Moon [facility] 9 12:58:24 Date Recorded Body height Body mass index (BMI) Body weight Systolic blood pressure Diastolic blood pressure Provider Name and Address Organization Details Last Updated DateTime 01/07/2019 165.1 cm 41.7 kg/m2 836460.8 9 g 90 mm[Hg] 68 mm[Hg] Albertina Traore [facility] 9 09:57:19 Date Recorded Body height Body mass index (BMI) Body weight Systolic blood pressure Diastolic blood pressure Provider Name and Address Organization Details Last Updated DateTime 03/08/2019 165.1 cm 41.6 kg/m2 912240.3 7 g 118 mm[Hg] 68 mm[Hg] Tia Padilla [facility] 9 09:59:02 Date Recorded Body height Body mass index (BMI) Body weight Systolic blood pressure Diastolic blood pressure Provider Name and Address Organization Details Last Updated DateTime 09/18/2018 165.1 cm 42.6 kg/m2 260649.6 5 g 124 mm[Hg] 72 mm[Hg] Adela Mcgowan [facility] 8 09:39:06 Social History Question Answer Notes LastModified by Organizat ion Details LastModified Time Tobacco Smoking Status [facility] 09:52:09 What Is Your Level Of Caffeine Consumption? Moderate [email or web address] Information not available 01/07/2019 How Much Tobacco Do You Chew? None Information not available 11/13/2018 What Was The Date Of Your Most Recent Tobacco Screening? 03/08/2019 Information not available 12/21/2019 How Much Tobacco Do You Smoke? No Information not available 11/13/2018 Has Tobacco Cessation Counseling Been Provided? No [email or web address] Information not available 01/07/2019 How Many Years Have You Smoked Tobacco? 0 Information not available 11/13/2018 Do You Have Symptoms Associated With Zika Virus (fever, Rash, Joint Pain, Or Conjunctivitis) ? No [email or web address] Information not available 01/07/2019 Have You Recently (within The Last 12 Weeks, Or During A Current ) Traveled To Or Lived In A Zika-affected Area? No [email or web address] Information not available 01/07/2019 Sex: Unknown Functional Status Question Answer Note LastModified by Organization D etails LastModified Time What is your level of alcohol consumption? None Information not available 01/07/2019 Mental Status None recorded. Family History Relationship Description Onset Age of this Age Resolved Age Notes LastModified by Organization Details LastModified Time Mother Family history of malignant neoplasm 45 Cervic al [email or web address] Not available 01/07/2019 09:53:47 Maternal Grandfather Family history of malignant neoplasm 60 Colon [email or web address] Not available 01/07 09:53:50 Medical History Condition Response Heart Problems N Other Y Thyroid Problems N Glaucoma N Lung Disease N Depression N Anemia N Immune System Disorder N Anesthesia Complications Y Heart Attack ([place]) N Deep Vein Thrombosis N Diabetes Y Bleeding Disorder N Arthritis N Seizures/Epilepsy N AIDS/HIV N Hyperlipidemia N Cancer N Varicosities N Stroke N Asthma Y Hoarseness N Shortness of Breath N Sleep Apnea Y High Cholesterol N Liver Disease Y Headaches N Hypertension N Chicken Pox Y Kidney Disease N Gynecological History Statement/Question Response Date of Last Colonoscopy 02/01/2018 Date of Last Mammogram 10/23/2018 Flow Heavy Most Recent Bone Density Date of LMP 10/08/2018 Menses Monthly Y Date of Last Pap Smear 06/23/2017 Duration of Flow (days) 7 Current Control Method Partner Vas ectomy Age at Menarche 12 LMP Definite Obstetrics History GPAL:G 2 P 1 0 1 1 Type Value Full Term 1 Spontaneous 1 Living 1 Total 2 Immunizations Vaccine Type Date Status Note Provider Nam e and Address Organization Details Recorded Time Influenza, split virus, quadrivalent, preservative 8 completed Remedios Hatch [facility] 11/18/2018 09:17:36 Past Encounters Encounter ID Performer Location Encounter Start Date Encounter Closed Date Diagnosis/Indication Diagnosis SNOMED-CT Code Diagnosis ICD10 Code Diagnosis Note [id number] MONICA MARTINEZ MD [facility] [address] [place] [address] 06/23/2017 09:26:58 06/23/2017 10:56:02 Palpitations 84207042 R00.2 Screening for malignant neoplasm of colon 522274694 Z12.11 Routine gy necologic examination done 9707766854 9101 Z01.419 Infection screening 2437 03016 Z11.[id number] [place] [address] 09/18/2018 09:27:51 09/18/2018 10:21:07 Gynecologic examination 33371959 Z01.419 Discussed SBEs Pap smear not indicated today Menorrhagia 283161921 N9 2.0 Discussed possible causes Discussed perimenopa use vs menopause Will call to discuss results and POC Body mass index 40+ - severely obese 458105915 Z68.41 Handout given with diet and exercise recommenda tions [id number] MD [address] [place] [address] 11/13/2018 12:51:52 11/13/2018 13:55:50 Menorrhagia 478155701 N92.0 Seven-day course of provera sent in to [facility] cycle for this month; plan hysterosco py with D&C and novasure ablation Ultrasound scan abnormal 033348141 R93.89 Pamphlets provided on hysterosco py with D&C and novasure ablation discussed outpatient procedure- genl anespre-op antibxsign HB 1 form and run kaskandaceUsdorinda lly able to return to normal activites the day after procedure Type 2 ruy betes mellitus without complication 898333146 E11.9 Due to intoleranc e of metformin will change to extended relase and slowly increase dosing- Non-alcoho lic fatty liver 117024057 K76.0 Discussed weight loss measures- diabetic diet and use of metformin- -Followed by PCP, Dr. Simpson [id number] MONICA MARTINEZ MD SURGERY SCHEDULE [address] [place] [address] 12/23/2018 08:29:01 12/23/2018 08:35:14 Abnormal uterine bleeding 8754697331 9100 N93.9 Postoperative pain 39069 9007 G89.18 Declines narcotics Premenopau ginger menorrhagia 45234623 N92.4 [id number] MD [address] [place] [address] 01/07/2019 09:28:22 01/07/2019 10:15:09 Postoperative visit 257577822 Z09 clinically reassuring exam- may resume normal activites including intercours e and exercise Menorrhagia 730107369 N9 2.0 S/P hysterosco py with D&C and novasure ablation- will follow cycles Body mass index 40+ - severely obese 771344189 Z68.41 [id number] MONICA MARTINEZ MD [facility] [address] [place] [address] 03/08/2019 09:46:47 03/08/2019 10:52:42 Menorrhagia 627600294 N92.0 Resolved after ablation Health Concerns Section Related Observation LastModified by Organization Detai ls LastModified Time None Recorded Concern Status LastModified by Organization Details LastModified Time None Recorded Advance Directives Directive None Recorded Payers Insurance Date Sequence Insurance Name Policy Number Policy Velarde Covered Member ID Velarde Member ID Guarantor Name 03/02/2021 PAYMENT PLAN Vianney Ramirez 09/27/2020 1 [place] [id number] Camden James [id number] Vianney Ramirez Notes Date Note Type Note Provider Name and Address Organization Details Recorded Time 09/18/2018 text/html Presents for brown ual exam No hx abn Pap results Screenings UTD - mammogram scheduled in Oct vasectomy C/o increase in period flow x 6 months Cycles q 28- 30 days with 6-9 days flow 2-3 days heaviest flow - changes super tampon q 2 hrs with clots noted No BTB or pelvic pain Hot flashes x years Just dx with DM 2 - started Metformin Also with fatty liver dx - sees PCP Extensive labs done with PCP with new dx CBC wnl per pt CARMEN WHALEY, PLUMBER HELPER [address], [place], [address], [place] [facility] 09/18/2018 17:05:35 11/13/2018 text/html Last visit 09/18 with Carmen Whaley Here to discuss options for treatment of menorrhagia and thickened endometrium with Vasectomy LMP 10/08/18; cycles regular every 28-30 days; periods have been increasing in flow for past 6 months and last 6-9 days with heavy flow for 3 days Ultrasound -09/28/18 uterus: 9.5 x 5.8 x 5.9 cm linin.5 mm right ovary: not visualized left ovary: not visualized comments: generous endometrium, neither ovary visible Surgical Hx: D&C in distant past, robinson gonzalez No hx abn Pap results - mammogram scheduled in [facility] Hot flashes x years Just dx with DM 2 and has started Metformin but has difficulty tolerating it due to diarrhea- Also diagnosed with fatty liver disease PCP- Dr. Calvin MARTINEZ MD [address] [place] [address] [place], [address], [facility] 11/15/2018 08:03:08 01/07/2019 text/html Post-OpReported bypatient.Onset/David ing:date of surgery: (12/23/18) Quality:procedure: (hysteroscopy with D&C and novasure ablation) Context:reason for procedure: (AUB/ menorrhagia); operative findings: (thick endometrium); operative complications: (none); postoperative complications: (none); pathology findings: (benign) Associated Symptoms:no fatigue; normal appetite; normal bowel function; no constipation; no nausea; no emesis; pain improving; no pain; no fever; no bleeding; no lower extremity edema/pain; no dysuria/urinary symptomsNotes:No n/v/f/c no pelvic pain no bowel issues some watery discharge without odor MONICA MARTINEZ MD [facility] [place], [address], [facility] 01/10/2019 12:03:36 03/08/2019 text/html Last visit 9 for 2nd post op visit Here to f/u bleeding pattern S/p hyst D&C w/novasure on 12/23/18 Last pap 06/23/2017 Last mamm 10/23/18 partner with VAS no period January, February, then period on 03/05/19-wears a pad throughout the day but overall light flow no cramping or bleeding in January or February minimal cramping with bleeding at present time no pain or bleeding with intercourse MONICA MARTINEZ MD [facility] [place], [address], [facility] 03/21/2019 19:40:17 OBGyn Episode No OBEpisode recorded.
--- OUTSIDE RECORDS SUMMARY | 2025-04-15 08:53 | XMS_ITS | Clinical Summary ---
Author Organization [facility] Address [address] [place] [address] Care Team Providers Care Finishing Technician Name Role Phone Devon Simpson MD Primary Care Provider Social History Tobacco Use Types Packs/Day Years Used Date Smoking Tobacco: Never Assessed Comments Unknown Sex and Gender Information Value Date Recorded Sex Assigned at Not on file Legal Sex Female 8:41 PM EDT Gender Identity Not on file Sexual Orientation Not on file Plan of Treatment Upcoming Encounters Date Type Department Care Team (Late st Contact Info) Description 07/25/2025 11:30 AM EDT Ovarian Cancer Screening [facility] Gynecology [address]rd [place] [address] Health Maintenance Due Date Last Done Comments [facility]-Depression Screening 1965 [facility]-HIV Screening 1965 [facility]-Hepatitis C Screening 1965 [facility]-/Child/Adol SDOH Screenings 1965 [facility]- SDOH Screenings 1983 [facility]-Adult SDOH Screenings 1983 [facility]-HPV/Cotest 1995 CT Colonography 2010 Colonoscopy 2010 FIT-DNA 2010 FIT 2010 FOBT 2010 Sigmoidoscopy 2010 [facility]-Colorectal Cancer Screening 2010 [facility]-Pneumococcal Vaccine: 50+ Years (1 of 1 - PCV) 2015 [facility]-Zoster Vaccines (1 of 2) 2015 [id number] Vaccine ( season) 2024 07/29/2022, 01/20/2021, 12/30/2020 [facility]-Influenza Vaccine (Season Ended) 2025 07/28/2020, 08/02/2018, 07/31/2017, Additional history exists [facility]-Breast Cancer Screening 12/16/202512/04, 12/16/2023, 12/09/2022, Additional history exists [facility]-Cervical Cancer Screening 02/16/2027 [facility]-Pap Smear 02/16/2027 02/17/2024 [facility]-DTaP,Tdap,and Td Vaccines (3 - Td or Tdap) 11/23/2029 11/23/2019, 10/20/2008, 05/05/2002 [facility]-RSV Vaccine: 60+ Years or (1 - 1-dose 75+ series) 02/10/2040 [facility]-Hepatitis A Vaccines Aged Out 10/16/2006, 04/03 No longer eligible based on patient's age to complete this topic HPV Vaccines Aged Out No longer eligi ble based on patient's age to complete this topic [facility]-HIB Vaccines Aged Out No longer e ligible based on patient's age to complete this topic [facility]-IPV Vaccines Aged Out No longer e ligible based on patient's age to complete this topic [facility]-Rotavirus Vaccines Aged Out No lo nger eligible based on patient's age to complete this topic Care Teams Finishing Technician Relationship Specialty Start Date End Date Devon Simpson MD [address] [place] [address] [address] [place] [address] PCP - General 03/16/21
--- NOTE | 2025-04-15 09:05 | XR_ITS ---
FINAL REPORT TECHNIQUE: Bone densitometry calculations of the lumbar spine and bilateral hips were obtained. CLINICAL HISTORY: SCREENING COMPARISON: None FINDINGS: Using L1-4, the bone mineral density of the spine is 1.155 g/cm2, corresponding to T-score of 1.0. Using the left hip, the bone mineral density of the femoral neck is 0.802 g/cm2, corresponding to a T-score of -0.4. Using the right hip, the bone mineral density of the femoral neck is 0.850 g/cm?, corresponding to a T-score of 0.0 NOTE: T-score: Standard deviation compared with peak bone mass of young adult mean. *Following the recommendations of the International Society of Bone densitometry, classification of hip BMD is based on the lower of two T-scores; total hip or femoral neck. IMPRESSION: Normal bone mineral density of the lumbar spine and bilateral hips. Reviewed, Interpreted and Dictated by Callum Mullins MD Transcribed by Nika Lloyd Authenticated and [facility]
== END 2025-04-15 23:59 | disposition home or self-care (01) ==
LOC: RAD 08:50
PROVIDERS: PCP Internal Medicine; Visit Provider Obstetrics & Gynecology
DX: Z78.0 Asymptomatic menopausal state (principal)
CPT/HCPCS: 77080

== ENCOUNTER 2025-04-26 13:09 | Outpatient (CLI) | payer BC, SELFPAY ==
[2025-04-26 12:36] LABS: Basophils # 0.1 K/mm3 (0-0.2); Basophils % 0.7 % (0.1-2.0); Eosinophils # 0.7 Kmm3 (0.0-0.4); Hematocrit 38.5 % (37.0-47.0); Hemoglobin 12.4 g/dL (12.2-16.2); Immature Granulocytes # 0.02 10^3uL; Immature Granulocytes % 0.3 %; Lymphocytes # 2.1 K/mm3 (0.7-4.5); Lymphocytes % 28.9 % (10-50); Mean Corpuscular HGB Conc 32.2 g/dL (31.8-35.4); Mean Corpuscular Hemoglobin 27.6 pg (27.0-31.2); Mean Corpuscular Volume 85.7 fl (81-99); Mean Platelet Volume 10.1 fl (7.4-10.4); Monocytes # 0.7 K/mm3 (0.1-1.0); Monocytes % 9.3 % (1.7-9.3); Neutrophils # 3.8 K/mm3 (1.8-7.8); Neutrophils % 51.8 % (37.0-80.0); Nucleated Red Blood Cells # 0 10^3/uL; Nucleated Red Blood Cells % 0 %; Platelet Count 353 K/mm3 (142-424); Red Blood Count 4.49 M/mm3 (4.20-5.40); Red Cell Distribution Width 14.8 % (11.5-17.5); Red Cell Distribution Width-SD 46.3 fL; White Blood Count 7.2 K/mm3 (4.8-10.8)
[2025-04-26 12:55] LABS: Creatinine,Urine Random 123 mg/dL (Not Estab.)
[2025-04-26 13:09] LABS: Hemoglobin A1C 8.6 % (4.0-6.0)
--- OUTSIDE RECORDS SUMMARY | 2025-04-26 13:16 | XMS_ITS | Clinical Summary ---
Author Organization [facility] Address [address] [place] [address] Care Team Providers Care Linoleum Tile Floor Layer Name Role Phone Devon Simpson MD Primary Care Provider [phone] Social History Tobacco Use Types Packs/Day Years [...] 07/25/2025 11:30 AM EDT Ovarian Cancer Screening [facility] Gynecology [address] [place] [address] Health Maintenance Due Date Last Done Comments [...] 2015 [facility]-Zoster Vaccines (1 of 2) 2015 [id number] Vaccine ( season) 2024 07/29/2022, 01/20/2021, 12/30/2020 [...] age to complete this topic Care Teams Linoleum Tile Floor Layer Relationship Specialty Start Date End Date Devon Simpson MD [address] [place] [address] [address] [place] [address] PCP - General 03/16/21
--- OUTSIDE RECORDS SUMMARY | 2025-04-26 13:16 | XMS_ITS | Data Portability ---
Author Organization [facility] TANMAY [facility] [place] [facility] Address [address] [address] [place] [address] Assessment Encounter Date Assessment Date Assessment LastModified [...] The patient has been seen at the [facility] [employer] and she has been diagnosed with abnormal [...] a House Bill 1 form and a MERLE report has been run. OPERATIVE NOTE: The [...] FSH (follicle- stimulatin g hormone), serum 2017 018 [facility], [address] [place] [address], [phone], 8 17:14:09 estradiol, serum 2017 018 [facility], [address] [place] [address], [address], 8 17:14:10 lh (luteinizi ng hormone), serum 2017 018 [facility], [address] [place] [address], [id number], 8 17:14:08 TSH, serum or plasma 2017 018 [facility], [address] [place] [address], [address], 8 17:15:48 T4, free, serum 2017 018 [facility], [address] [place] [address], [id number], 8 17:54:24 Referral None recorded. Procedures None recorded. Surgeries dilation and curettage with hysterosco py (SURG) 2018 019 ORTIZ Not available 9 08:44:17 Imaging US, transvagin al 2017 018 juniorlan d10 [facility], [address] [facility], [place], [address], 8 13:10:20 Medication Orders ibuprofen 600 mg tablet 2018 019 INTERFACE [facility], [address], [address], 9 11:18:41 Zofran 4 mg tablet 2018 019 INTERFACE [facility], [address], [address], 9 11:18:38 Provera 5 mg tablet 2018 019 [facility], [address], [address], 9 12:01:59 metformin ER 500 mg tablet,ext ended release 24 hr 2018 INTERFACE [facility], [address], [address], 9 13:35:53 Patient TargetsNo targets recorded. Patient Instructions Encounter Date Encounter Id Patient Instructions Last Modified By Organization Details Last Modified Time 09/18/2018 [id number] learning about cervical cancer screening Not available 09/18/2018 10:12:29 Spent 15 total minutes with the patient today. Greater than 50% of this time was spent counseling/coordi nation of care as documented in my assessment and plan above. Not available 09/18/2018 10:11:20 11/13/2018 [id number] heavy menstrual periods: care instructions [email or web address] Not available 11/13/2018 13:35:48 Nonalcoholic Fatty Liver Disease (NAFLD): Care Instructions [email or web address] Not available 11/13/2018 13:38:23 visit 15-20 min and > 50 % spent in counseling [email or web address] Not available 11/15/2018 08:02:50 12/23/2018 [id number] acute pain after surgery: care instructions [email or web address] Not available 12/23/2018 11:08:02 01/07/2019 [id number] body mass index: care instructions Not available 01/10/2019 12:03:18 Body Mass Index: Care Instructions-LC [email or web address] Not available 01/10/2019 12:03:18 learning about healthy weight [email or web address] Not available 01/10/2019 12:03:18 heavy menstrual periods: care instructions Not available 01/07/2019 10:11:40 post op visit [email or web address] Not available 12:03:17 03/08/2019 [id number] heavy menstrual periods: care instructions Not available 03/21/2019 19:40:14 brief visit - < 15 min entirely spent in counseling Not available 03/21/2019 19:39:58 Reason for Referral [...] USE 7.7-5 8.5 mIU/m L Not Available [facility] [address] [facility], [place], [address], 09/18/2018 17:14:08 09/18/20 18 09/18/2018 FSH (foll [...] 25.8 - 134.8 MIU/M L Not Available [facility] [address] [place], [address], 09/18/2018 17:14:09 09/18/20 18 09/18/2018 estra diol, [...] to show cross react ivity to Fulve stran tjatinder be used to measu re estra [...] - > 30,00 0 pg/mL Not Available [facility] [address] [place], [address], 09/18/2018 17:14:10 09/18/20 18 09/18/2018 TSH, serum or plasm a TSH 1.700 uIU/m L 0.290- 5.500 normal Not Available [facility] [address] [place], [address], 09/18/2018 17:15:48 09/18/20 18 09/18/2018 T4, free, serum T4,free 0.99 NG/dL 0.93-1 .70 normal Not Available [facility] [address] [place], [address], 09/18/2018 17:54:24 12/23/19 19 12/23/[address] [facility] patho logy study surgical pathology procedure SEE BELOW Depar tment of Patho logy Surgi [facility] Patho logy Repor t NAME: BUNNY RAMIREZ PATH. :SS-1 [id number] Copy to: Diagn osis: A) Endom [...] 11:13 Page 1 of 1 Not Available [facility] [address] [place], [address], 12/24/2018 11:14:19 09/28/20 18 09/28/2018 US, trans vagin al [facility] [address] [place] [address] Mary segovia Name: VIANNEY segovia : [birth year] Pat[place] t Orderi ng Provid er: VALENCIA CARRASQUILLO RTY EXAM DATE: 2017 EXAM: US PELVIS [employer] CONSULTANT TRANSV AGINAL CLINIC AL INFORM ATION: Abnorm [...] Cagle MD on 2017 8:53 AM [email or web address] [facility] [address], [place], [address], 09/30/2018 10:52:08 10/25/20 18 10/23/2018 MAMMO , scree arianna, tomos ynthe sis, bilat eral, w/ CAD No observ ation record ed. [facility] Surgery Scheduling [address], [place], [address], 10/26/2018 22:02:38 Result Notes None recorded. Problems No Known Problems Procedures Surgical History Date Name Laterality Status Provider Name and Address Organization Details Recorded Time 12/23/19 19 hysteroscopy completed Albertina Traroe [facility] 01/07/2019 09:54:46 12/23/19 19 DILATION AND CURETTAGE WITH HYSTEROSCOPY (SURG) completed Ranjan Valdes [facility] 01/14/2019 08:48:07 10/23/20 18 Date of Last Mammogram completed Triny Moon [facility] 11/13/2018 12:57:02 02/02/20 18 Date of Last [facility] 09[facility]18[facility] 09:41:31 06/23/20 17 Pap Smear collection completed MONICA MARTINEZ MD [address] [place] [address], [address] 06/24/2017 13:19:03 06/23/20 17 Date of Last Pap Smear completed [facility] 09/18/2018 09:41:01 [facility] 09:52:20 [facility] 09:52:33 Imaging Results None recorded. Procedure Notes None recorded. Medical Equipment None Reported. Allergies Allergen ID Allergen Name Allergen Category Reaction Reaction Severity Criticality Documentation Date Start Date Code Code System Note Provider Name and Address Organization Details Recorded Time 491165 Prevacid medicatio n Not available Not available Not available 09/26/20162009 20700 RxNorm Comme nt: gener maxime preva emily/chuckie eneri c;Cre ated By: Debra Alexander carmella Date: 2009 1:13: 49 PM; Not Available [facility] 6 13:16:40 [id number] Levaquin medicatio n Not available Not available Not available 09/26/20162006 43019 2 RxNorm Comme nt: Creat ed By: King Mary waltonCre ated Date: 9:55: 25 AM; Not Available [facility] 6 13:40:52 851900 Biaxin medicatio n Not available Not available Not available 09/26/20162006 16634 9 RxNorm Comme nt: Creat ed By: King Mary waltonCre ated Date: 9:55: 42 AM; Not Available [facility] 6 13:40:52 Medications Name Sig Start Date [...] Updated DateTime 11/13/2018 165.1 cm 43.2 kg/m2 566271.2 2 g 122 mm[Hg] 84 mm[Hg] Triny Moon [facility] 9 12:58:24 Date Recorded Body height Body mass index (BMI) Body weight Systolic blood pressure Diastolic blood pressure Provider Name and Address Organization Details Last Updated DateTime 01/07/2019 165.1 cm 41.7 kg/m2 711454.8 9 g 90 mm[Hg] 68 mm[Hg] Albertina Traore [facility] 9 09:57:19 Date Recorded Body height Body mass index (BMI) Body weight Systolic blood pressure Diastolic blood pressure Provider Name and Address Organization Details Last Updated DateTime 03/08/2019 165.1 cm 41.6 kg/m2 974049.3 7 g 118 mm[Hg] 68 mm[Hg] Tia Randy [facility] 9 09:59:02 Date Recorded Body height Body mass index (BMI) Body weight Systolic blood pressure Diastolic blood pressure Provider Name and Address Organization Details Last Updated DateTime 09/18/2018 165.1 cm 42.6 kg/m2 435488.6 5 g 124 mm[Hg] 72 mm[Hg] Adela Mcgowan [facility] 8 09:39:06 Social History Question Answer Notes LastModified by Organizat ion Details LastModified Time Tobacco Smoking Status Never [facility]oker [facility] 06/23/2017 09:52:09 What Is Your Level Of Caffeine Consumption? Moderate [email or web address] Information not available 01/07/2019 How Much Tobacco Do You Chew? None Information not available 11/13/2018 What Was The Date Of Your Most Recent Tobacco Screening? 03/08/2019 Information not available 12/21/2019 How Much Tobacco Do You Smoke? No Information not available 11/13/2018 Has Tobacco Cessation Counseling Been Provided? No [email or web address] Information not available 01/07/2019 How Many Years Have You Smoked Tobacco? 0 Information not available 11/13/2018 Do You Have Symptoms Associated With Zika Virus (fever, Rash, Joint Pain, Or Conjunctivitis) ? No [email or web address] Information not available 01/07/2019 Have You Recently (within The Last 12 Weeks, Or During A Current ) Traveled To Or Lived In A Zika-affected Area? No [email or web address] Information not available 01/07/2019 Sex: Unknown Functional Status Question Answer Note LastModified by Organization D etails LastModified Time What is your level of alcohol consumption? None [email or web address] Information not available 01/07/2019 Mental Status None recorded. Family History Relationship Description Onset Age of this Age Resolved Age Notes LastModified by Organization Details LastModified Time Mother Family history of malignant neoplasm 45 Cervic al [email or web address] Not available 01/07/2019 09:53:47 Maternal Grandfather Family history of malignant neoplasm 60 Colon [email or web address] Not available 01/07 09:53:50 Medical History Condition Response Other Y Depression N Arthritis N Cancer N Stroke N Varicosities N Hoarseness N Headaches N Kidney Disease N Heart Problems N Bleeding Disorder N AIDS/HIV N Asthma Y Chicken Pox Y Lung Disease N Glaucoma N Anesthesia Complications Y Deep Vein Thrombosis N Shortness of Breath N High Cholesterol N Liver Disease Y Thyroid Problems N Anemia N Immune System Disorder N Heart Attack ([place]) N Diabetes Y Seizures/Epilepsy N Hyperlipidemia N Sleep Apnea Y Hypertension N Gynecological History Statement/Question Response Date of [...] split virus, quadrivalent, preservative 8 completed Remedios villagran [facility] 11/18/2018 09:17:36 Past Encounters Encounter ID Performer Location Encounter Start Date Encounter Closed Date Diagnosis/Indication Diagnosis SNOMED-CT Code Diagnosis ICD10 Code Diagnosis Note [id number] MONICA MARTINEZ MD [facility] [address] [place] [address] 06/23/2017 09:26:58 06/23/2017 10:56:02 Palpitations 60278718 R00.2 Screening for malignant neoplasm of colon 618039672 Z12.11 Routine gy necologic examination done 1002795793 9101 Z01.419 Infection screening 2967 74957 Z11.[id number] [place] [address] 09/18/2018 09:27:51 09/18/2018 10:21:07 Gynecologic examination 50859670 Z01.419 Discussed SBEs Pap smear not indicated today Menorrhagia 015244041 N9 2.0 Discussed possible causes Discussed perimenopa use vs menopause Will call to discuss results and POC Body mass index 40+ - severely obese 508545053 Z68.41 Handout given with diet and exercise recommenda tions [id number] MD [address] [place] [address] 11/13/2018 12:51:52 11/13/2018 13:55:50 Menorrhagia 772239233 N92.0 Seven-day course of provera sent in to [facility] start cycle for this month; plan hysterosco py with D&C and novasure ablation Ultrasound scan abnormal 752813906 R93.89 Pamphlets provided on hysterosco py with D&C and novasure ablation discussed outpatient procedure- genl anespre-op antibxsign HB 1 form and run Poli lly able to return to normal activites the day after procedure Type 2 ruy betes mellitus without complication 681106885 E11.9 Due to intoleranc e of metformin will change to extended relase and slowly increase dosing- Non-alcoho lic fatty liver 335559357 K76.0 Discussed weight loss measures- diabetic diet and use of metformin- -Followed by PCP, Dr. Simpson [id number] MONICA MARTINEZ MD SURGERY SCHEDULE [address] [place] [address] 12/23/2018 08:29:01 12/23/2018 08:35:14 Abnormal uterine bleeding 1539103106 9100 N93.9 Postoperative pain 52273 9007 G89.18 Declines narcotics Premenopau ginger menorrhagia 89199437 N92.[id number] [place] [address] 01/07/2019 09:28:22 01/07/2019 10:15:09 Postoperative visit 673027613 Z09 clinically reassuring exam- may resume normal activites including intercours e and exercise Menorrhagia 733895760 N9 2.0 S/P hysterosco py with D&C and novasure ablation- will follow cycles Body mass index 40+ - severely obese 661727439 Z68.41 [id number] MONICA MARTINEZ MD [facility] [address] [place] [address] 03/08/2019 09:46:47 03/08/2019 10:52:42 Menorrhagia 087814750 N92.0 Resolved after ablation Health Concerns Section Related Observation LastModified by Organization Detai ls LastModified Time None Recorded Concern Status LastModified by Organization Details LastModified Time None Recorded Advance Directives Directive None Recorded Payers Insurance Date Sequence Insurance Name Policy Number Policy Velarde Covered Member ID Velarde Member ID Guarantor Name 03/02/2021 PAYMENT PLAN Vianney Ramirez 09/27/2020 1 [employer] [id number] Camden Ramirez [id number] Vianney Ramirez Notes Date Note Type [...] dx CBC wnl per pt CARMEN WHALEY, WELDER [employer]TER APPRENTICE [address], [place], [address], [facility] 09/18/2018 17:05:35 11/13/2018 text/html Last visit 09/18 [...] abn Pap results - mammogram scheduled in [facility] Hot flashes x years Just dx with DM 2 and has started Metformin but has difficulty tolerating it due to diarrhea- Also diagnosed with fatty liver disease PCP- Dr. Calvin MARTINEZ MD [address] [place] [address], [phone], [facility] 11/15/2018 08:03:08 01/07/2019 text/html Post-OpReported bypatient.Onset/David [...] watery discharge without odor MONICA MARTINEZ MD [address] [place] [address], [phone], [facility] 01/10/2019 12:03:36 03/08/2019 text/html Last visit [...] or bleeding with intercourse MONICA MARTINEZ MD [address] [place] [address], [phone], [facility] 03/21/2019 19:40:17 OBGyn Episode No OBEpisode recorded.
[2025-04-26 13:24] LABS: Albumin Level 4.4 g/dl (3.5-5.0); Chloride 100 mmol/L (98-107); Sodium 139 mmol/L (136-145)
[2025-04-26 13:25] LABS: Potassium 4.9 mmoL/L (3.5-5.1)
[2025-04-26 13:27] LABS: Alanine Aminotransferase 49 U/L (12-78); Albumin/Globulin Ratio 1.3 (1.1-1.8); Alkaline Phosphatase 63 U/L (38-126); Anion Gap 15.9 mEq/L (5-15); Aspartate Amino Transferase 54 U/L (14-36); Bilirubin,Total 0.3 mg/dl (0.2-1.3); Blood Urea Nitrogen 13 mg/dl (7-17); Carbon Dioxide 28 mmol/L (22.0-30.0); Cholesterol 176 mg/dl (140-200); Estimated Glomerular Filt Rate 85 ml/min (>60); GFR (African American) 103 ML/MIN (>60); Globulin 3.3 g/dL (1.3-3.2); Total Protein,Serum 7.7 g/dl (6.3-8.2); Triglycerides 111 mg/dl (30-150); VLDL Cholesterol 22 mg/dL (0-40)
[2025-04-26 13:28] LABS: Calcium 9.4 mg/dl (8.4-10.2); Chol/HDL Ratio 3.9 (1-3.5); Glucose 136 mg/dl (74-100); HDL Cholesterol 45 mg/dl (40-60)
[2025-04-26 13:39] LABS: Direct LDL Cholesterol 93.52 mg/dL (100-129)
== END 2025-04-26 23:59 | disposition home or self-care (01) ==
LOC: LAB.DROPOF 13:10
PROVIDERS: PCP Internal Medicine; Visit Provider Internal Medicine
DX: E11.22 Type 2 diabetes mellitus with diabetic chronic kidney disease (principal); N18.2 Chronic kidney disease, stage 2 (mild); K75.81 Nonalcoholic steatohepatitis (NASH); I10 Essential (primary) hypertension; E78.5 Hyperlipidemia, unspecified
CPT/HCPCS: 80053; 80061; 82043; 82570; 83036; 85025

== ENCOUNTER 2025-09-18 17:45 | Emergency (ER) | payer BC, SELFPAY ==
--- OUTSIDE RECORDS SUMMARY | 2021-11-14 10:57 | XMS_ITS | Encounter Summary ---
Author Organization [facility] Address [address] [place] [address] Care Team Providers Care Senior Medical Director Name Role Phone Devon Simpson MD Primary Care Provider [phone] Reason for Visit * Diagnostic Imaging (Emergency) - Closed Specialty Diagnoses / Procedures Referred By Contjairo t Referred To Contact Obstetrics and Gynecology Diagnoses Women's annual routine gynecological examination Procedures DEXA Bone Density Axial Saloni Pereyra MD [address] [facility] [address] [place] [id number] Phone: tel: fax: [facility] [address] [place] [address] Phone: tel:[phone] fax:[phone] Referral ID Status Reason Start Date Expiration Date Visits Re quested Visits Authorized [id number] Closed 11/14/2021 11/14/2022 1 1 Encounter Details Date Type Department Care Team (Late st Contact Info) Description 11/14/2021 10:57 AM EST Hospital Encounter [facility] [address] [place] [address] Social History Tobacco Use Types Packs/Day Years Used Date Smoking Tobacco: Never Smokeless Tobacco: Never Alcohol Use Standard Drinks/Week Comments Never 0 (1 standard drink = 0.6 oz pur e alcohol) Comments No Sex and Gender Information Value Date Recorded Sex Assigned at Not on file Legal Sex Female 10:40 AM EDT Gender Identity Not on file Sexual Orientation Not on file documented as of this encounter Plan of Treatment Upcoming Encounters Date Type Department Care Team (Late st Contact Info) Description 02/22/2026 3:30 PM EDT Office Visit [facility] [address] [place] [id number] Saloni Pereyra MD [address] [facility] [address] [place] [address] Pending Results Name Type Priority Associated Diagnoses Date /Time DEXA Bone Density Axial Imaging STAT Women's annual routine gynecological examination 11/14/2021 11:12 AM EST documented as of this encounter Visit Diagnoses Not on filedocumented in this encounter Care Teams Senior Medical Director Relationship Specialty Start Date End Date Devon Simpson MD [address] [facility] [address] [facility] [address] [place] [address] PCP - General Internal Medicine 10/23/18 documented as of this encounter
[2025-09-18 17:50] VITALS: BP 147/81; PULSE 87; RESP 20; TEMP 36.8; O2SAT 100; BMI 42.7
--- OUTSIDE RECORDS SUMMARY | 2025-09-18 17:59 | XMS_ITS | Data Portability ---
Author Organization [facility] Hughes TANMAY Berg [place] [facility] Address [address] [place] [address] Assessment Encounter Date Assessment Date Assessment LastModified [...] The patient has been seen at the [facility] Department of FITNESS INSTRUCTOR and she has been diagnosed with abnormal [...] (follicle- stimulatin g hormone), serum 2017 018 [facility], [address] [place] [address], [phone], 8 17:14:09 estradiol, serum 2017 018 [facility], [address] [place] [address], [address], 8 17:14:10 lh (luteinizi ng hormone), serum 2017 018 [facility], [address] [place] [address], [address], 8 17:14:08 TSH, serum or plasma 2017 018 [facility], [address] [place] [address], [address], 8 17:15:48 T4, free, serum 2017 018 [facility], [address] [place] [address], [address], 8 17:54:24 Referral None recorded. Procedures None recorded. Surgeries dilation and curettage with hysterosco py (SURG) 2018 019 ORTIZ Not available 9 08:44:17 Imaging US, transvagin al 2017 018 juniorlan d10 [facility] Radiology [facility], [address], [place], [address], 8 13:10:20 Medication Orders ibuprofen 600 mg tablet 2018 019 INTERFACE [facility], [address], [address], 9 11:18:41 Zofran 4 mg tablet 2018 019 INTERFACE [facility], [address], [address], 9 11:18:38 Provera 5 mg tablet 2018 019 [facility], [address], [address], 9 12:01:59 metformin ER 500 mg tablet,ext ended release 24 hr 2018 INTERFACE [facility], [address], [address], 9 13:35:53 Patient TargetsNo targets recorded. Patient Instructions Encounter Date Encounter Id Patient Instructions Last Modified By Organization Details Last Modified Time 09/18/2018 [id number] learning about cervical cancer screening Not available 09/18/2018 10:12:29 Spent 15 total minutes with the patient today. Greater than 50% of this time was spent counseling/coordi nation of care as documented in my assessment and plan above. Not available 09/18/2018 10:11:20 11/13/2018 [id number] heavy menstrual periods: care instructions [email or web address] Not available 11/13/2018 13:35:48 Metabolic Dysfunction-Assoc iated Steatotic Liver Disease (MASLD): Care Instructions [email or web address] Not available 11/13/2018 13:38:23 visit 15-20 min and > 50 % spent in counseling Not available 11/15/2018 08:02:50 12/23/2018 [id number] acute pain after surgery: care instructions [email or web address] Not available 12/23/2018 11:08:02 01/07/2019 [id number] body mass index: care instructions [email or web address] Not available 01/10/2019 12:03:18 Body Mass Index: Care Instructions-LC [email or web address] Not available 01/10/2019 12:03:18 learning about healthy weight [email or web address] Not available 01/10/2019 12:03:18 heavy menstrual periods: care instructions [email or web address] Not available 01/07/2019 10:11:40 post op visit [email or web address] Not available 12:03:17 03/08/2019 [id number] heavy menstrual periods: care instructions [email or web address] Not available 03/21/2019 19:40:14 brief visit - < 15 min entirely spent in counseling [email or web address] Not available 03/21/2019 19:39:58 Reason for Referral [...] USE 7.7-5 8.5 mIU/m L Not Available [facility] [address], [place], [address], 09/18/2018 17:14:08 09/18/20 18 09/18/2018 FSH (foll [...] 25.8 - 134.8 MIU/M L Not Available [facility] [address] [place], [address], 09/18/2018 17:14:09 09/18/20 18 09/18/2018 estra diol, [...] - > 30,00 0 pg/mL Not Available [facility] [address] [place], [address], 09/18/2018 17:14:10 09/18/20 18 09/18/2018 TSH, serum or plasm a TSH 1.700 uIU/m L 0.290- 5.500 normal Not Available [facility] [address] [place], [address], 09/18/2018 17:15:48 09/18/20 18 09/18/2018 T4, free, serum T4,free 0.99 NG/dL 0.93-1 .70 normal Not Available [facility] [address] [place], [address], 09/18/2018 17:54:24 12/23/19 19 12/23/2018 [facility] procedure SEE BELOW Depar tment of [facility] t NAME: BUNNY [...] 11:13 Page 1 of 1 Not Available [facility] [address] [place], [address], 12/24/2018 11:14:19 09/28/20 18 09/28/2018 US, trans vagin al [facility] [address] [place] [address] Mary segovia Name: VIANNEY segovia : [birth year] 65 Mary segovia Orderi ng Provid er: VALENCIA CARRASQUILLO RTY EXAM DATE: 2017 EXAM: US P[employer]ER TRANSV AGINAL CLINIC AL INFORM ATION: Abnorm [...] Cagle MD on 2017 8:53 AM [email or web address] [facility] Radiology Obgyn [address] [facility] [address], [place], [address], 09/30/2018 10:52:08 10/25/20 18 10/23/2018 MAMMO , scree arianna, tomos ynthe sis, bilat eral, w/ CAD No observ ation record ed. [facility] Scheduling [address], [place], [address], 10/26/2018 22:02:38 Result Notes None recorded. Problems No Known Problems Procedures Surgical History Date Name Laterality Status Provider Name and Address Organization Details Recorded Time 12/23/19 19 hysteroscopy completed Albertina Traore [facility] 01/07/2019 09:54:46 12/23/19 19 DILATION AND CURETTAGE WITH HYSTEROSCOPY (SURG) completed Ranjan Valdes [facility] 01/14/2019 08:48:07 10/23/20 18 Date of Last Mammogram completed Triny Moon [facility] 11/13/2018 12:57:02 02/02/20 18 Date of Last Colonoscopy completed Adela Mcgowan [facility] 09/18/2018 09:41:31 06/23/20 17 Pap Smear collection completed MONICA MARTINEZ MD [address] [place] [address], [phone] 06/24/2017 13:19:03 06/23/20 17 Date of Last Pap Smear completed Adela Mcgowan [facility] 09/18/2018 09:41:01 Cholecystectomy completed Patricia Durham [facility] 06/23/2017 09:52:20 [facility] 09:52:33 Imaging Results None recorded. Procedure Notes None recorded. Medical Equipment None Reported. Allergies Allergen ID Allergen Name Allergen Category Reaction Reaction Severity Criticality Documentation Date Start Date Code Code System Note Provider Name and Address Organization Details Recorded Time 120681 Prevacid medicatio n Not available Not available Not available 09/26/20162009 85544 RxNorm Comme nt: gener maxime preva emily/g eneri c;Cre ated By: Debra hcacon Date: 2009 1:13: 49 PM; Not Available [facility] 6 13:16:40 114164 Levaquin medicatio n Not available Not available Not available 09/26/20162006 46518 2 RxNorm Comme nt: Creat ed By: King Mary waltonCre ated Date: 9:55: 25 AM; Not Available [facility] 6 13:40:52 430190 Biaxin medicatio n Not available Not available Not available 09/26/20162006 90940 9 RxNorm Comme nt: Creat ed By: King Mary waltonCre ated Date: 9:55: 42 AM; Not Available [facility] 6 13:40:52 Medications Name Sig Start Date [...] Body mass index (BMI) Body weight Systolic And Diastolic Provider Name and Address Organization Details Last Updated DateTime 11/13/2018 165.1 cm 43.2 kg/m2 279622.22 g 122/84 mm[Hg] Triny Moon [facility] 11/13/2018 12:58:24 Date Recorded Body height Body mass index (BMI) Body weight Systolic And Diastolic Provider Name and Address Organization Details Last Updated DateTime 01/07/2019 165.1 cm 41.7 kg/m2 748546.89 g 90/68 mm[Hg] Albertina Traore [facility] 01/07/2019 09:57:19 Date Recorded Body height Body mass index (BMI) Body weight Systolic And Diastolic Provider Name and Address Organization Details Last Updated DateTime 03/08/2019 165.1 cm 41.6 kg/m2 536654.37 g 118/68 mm[Hg] Tia Randy [facility] 03/08/2019 09:59:02 Date Recorded Body height Body mass index (BMI) Body weight Systolic And Diastolic Provider Name and Address Organization Details Last Updated DateTime 09/18/2018 165.1 cm 42.6 kg/m2 096215.65 g 124/72 mm[Hg] Adela Mcgowan [facility] 09/18/2018 09:39:06 Social History Question Answer Notes LastModified by Organizat ion Details LastModified Time Tobacco Smoking Status Never [facility]oker [facility]/2017 09:52:09 What Is Your Level Of Caffeine Consumption? Moderate [email or web address] Information not available 01/07/2019 How Much Tobacco Do You Chew? None Information not available 11/13/2018 What Was The Date Of Your Most Recent Tobacco Screening? 03/08/2019 Information not available 12/21/2019 How Much Tobacco Do You Smoke? No Information not available 11/13/2018 Has Tobacco Cessation Counseling Been Provided? No [email or web address] Information not available 01/07/2019 How Many Years Have You Smoked Tobacco? 0 Information not available 11/13/2018 Do You Have Symptoms Associated With Zika Virus (fever, Rash, Joint Pain, Or Conjunctivitis) ? No Information not available 01/07/2019 Have You Recently (within The Last 12 Weeks, Or During A Current ) Traveled To Or Lived In A Zika-affected Area? No [email or web address] Information not available 01/07/2019 Sex: Unknown Functional Status Question Answer Note LastModified by Organization D etails LastModified Time What is your level of alcohol consumption? None Information not available 01/07/2019 Mental Status None recorded. Family History Relationship Description Onset Age of this Age Resolved Age Notes LastModified by Organization Details LastModified Time Mother Family history of malignant neoplasm 45 Cervic al [email or web address] Not available 01/07/2019 09:53:47 Maternal Grandfather Family history of malignant neoplasm 60 Colon [email or web address] Not available 01/07 09:53:50 Medical History Condition Response Heart Problems N Other Y Thyroid Problems N Depression N Lung Disease N Glaucoma N Anemia N Immune System Disorder N Anesthesia Complications Y Heart Attack (ID) N Deep Vein Thrombosis N Diabetes Y Bleeding Disorder N Arthritis N Seizures/Epilepsy N AIDS/HIV N Hyperlipidemia N Cancer N Stroke N Varicosities N Asthma Y Hoarseness N Shortness of [...] split virus, quadrivalent, preservative 8 completed [facility] 11/18/2018 09:17:36 Past Encounters Encounter ID Performer Location Encounter Start Date Encounter Closed Date Diagnosis/Indication Diagnosis SNOMED-CT Code Diagnosis ICD10 Code Diagnosis IMO Codes Diagnosis Note [id number] MONICA MARTINEZ MD [facility] [address] [place] [address] 06/23/2017 09:26:58 06/23/2017 10:56:02 Palpitations 28687423 R00.2 Screening for malignant neoplasm of colon 718944711 Z12.11 Routine gy necologic examination done 1137260741 9101 Z01.419 Infection screening 2437 93498 Z11.[id number] [place] [address] 09/18/2018 09:27:51 09/18/2018 10:21:07 Gynecologic examination 66431953 Z01.419 Discussed SBEs Pap smear not indicated today Menorrhagia 810356349 N9 2.0 Discussed possible causes Discussed perimenopa use vs menopause Will call to discuss results and POC Body mass index 40+ - severely obese 314818747 Z68.41 Handout given with diet and exercise recommenda tions [id number] MD [address] [place] [address] 11/13/2018 12:51:52 11/13/2018 13:55:50 Menorrhagia 909806547 N92.0 Seven-day course of provera sent in to [facility] cycle for this month; plan hysterosco py with D&C and novasure ablation Ultrasound scan abnormal 619477672 R93.89 Pamphlets provided on hysterosco py with D&C and novasure ablation discussed outpatient procedure- genl anespre-op antibxsign HB 1 form and run kaskandaceUsdorinda lly able to return to normal activites the day after procedure Type 2 ruy betes mellitus without complication 463531876 E11.9 Due to intoleranc e of metformin will change to extended relase and slowly increase dosing- Non-alcoho lic fatty liver 521337265 K76.0 Discussed weight loss measures- diabetic diet and use of metformin- -Followed by PCP, Dr. Simpson [id number] MONICA MARTINEZ MD SURGERY SCHEDULE [address] [place] [address] 12/23/2018 08:29:01 12/23/2018 08:35:14 Abnormal uterine bleeding 8532933543 9100 N93.9 Postoperative pain 55010 9007 G89.18 Declines narcotics Premenopau ginger menorrhagia 05918519 N92.4 [id number] MD [address] [place] [address] 01/07/2019 09:28:22 01/07/2019 10:15:09 Postoperative visit 800710134 Z09 clinically reassuring exam- may resume normal activites including intercours e and exercise Menorrhagia 767670472 N9 2.0 S/P hysterosco py with D&C and novasure ablation- will follow cycles Body mass index 40+ - severely obese 825658097 Z68.41 [id number] MONICA MARTINEZ MD [facility] [address] [place] [address] 03/08/2019 09:46:47 03/08/2019 10:52:42 Menorrhagia 415885078 N92.0 Resolved after ablation Health Concerns Section Related Observation LastModified by Organization Detai ls LastModified Time None Recorded Concern Status LastModified by Organization Details LastModified Time None Recorded Advance Directives Directive None Recorded Payers Insurance Date Sequence Insurance Name Policy Number Policy Velarde Covered Member ID Velarde Member ID Guarantor Name 03/02/2021 PAYMENT PLAN Vianney Ramirez 09/27/2020 1 [place] [id number] Camden James [id number] Vianney Ramirez Notes Date Note Type Note Provider Name and Address Organization Details Recorded Time 09/18/2018 text/html Presents for annual exam No hx abn Pap results Screenings [...] dx CBC wnl per pt CARMEN WHALEY, INSPECTOR [employer]OR [employer]SEM[employer] [address], [place], [address], [place] [facility] 09/18/2018 17:05:35 11/13/2018 text/html Last visit 09/18/18 with Carmen Whaley Here to discuss options [...] Surgical Hx: D&C in distant past, robinson gnozalez No hx abn Pap results - mammogram scheduled in [facility] Hot flashes x years Just dx with DM 2 and has started Metformin but has difficulty tolerating it due to diarrhea- Also diagnosed with fatty liver disease PCP- Dr. Calvin MARTINEZ MD [address] [place] [address], [address], [facility] 11/15/2018 08:03:08 01/07/2019 text/html Post-OpReported by PatientHPIFor onset/timing, patient reportsdate of surgery: (12/23/18). For quality, patient reportsprocedure: (hysteroscopy with d&c and novasure ablation). For context, patient reportsreason for procedure: (aub/ menorrhagia),operat jimmy findings: (thick endometrium),operat jimmy complications: (none),postoperativ e complications: (none), andpathology findings: (benign). For associated symptoms, patient reportsno fatigue,normal appetite,normal bowel function,no constipation,no nausea,no emesis,pain improving,no pain,no fever,no bleeding,no lower extremity edema/pain, andno dysuria/urinary symptoms.No n/v/f/c no pelvic pain no bowel issues some watery discharge without odor MONICA MARTINEZ MD [address] [place] [address], [address], [facility] 01/10/2019 12:03:36 03/08/2019 text/html Last visit 01/07/19 for 2nd post op visit Here to [...] or bleeding with intercourse MONICA MARTINEZ MD [address] [place] [address], [phone], [facility] 03/21/2019 19:40:17 OBGyn Episode No OBEpisode recorded.
--- OUTSIDE RECORDS SUMMARY | 2025-09-18 17:59 | XMS_ITS | Clinical Summary ---
Author Organization Healthcare Address [address] [place] [address] Care Team Providers Care Heat Treat Worker Name Role Phone Devon Simpson MD Primary Care Provider [phone] Encounters Date Type Department Care Team Description 07/25/2025 Travel from Last 3 Months Social History Tobacco Use Types Packs/Day Years Used Date Smoking Tobacco: Never Assessed Comments Unknown Sex and Gender Information Value Date Recorded Sex Assigned at Not on file Legal Sex Female 8:41 PM EDT Gender Identity Not on file Sexual Orientation Not on file Plan of Treatment Upcoming Encounters Date Type Department Care Team (Late st Contact Info) Description 08/21/2026 11:30 AM EDT Ovarian Cancer Screening [facility] Gynecology [address] [place] [address] Health Maintenance Due Date Last Done Comments [facility]-Depression Screening 1965 [facility]-HIV Screening 1965 [facility]-Hepatitis C Screening 1965 [facility]-Infant/Child/Adol SDOH Screenings 1965 [facility]- SDOH Screenings 1983 [facility]-Adult SDOH Screenings 1983 [facility]-HPV/Cotest 1995 CT Colonography 2010 Colonoscopy 2010 FIT-DNA 2010 FIT 2010 FOBT 2010 Sigmoidoscopy 2010 [facility]-Colorectal Cancer Screening 2010 [facility]-Pneumococcal Vaccine: 50+ Years (1 of 1 - PCV) 2015 [facility]-Zoster Vaccines (1 of 2) 2015 [id number] Vaccine (4 - season) 2025 07/29/2022, 01/20/2021, 12/30/2020 [facility]-Influenza Vaccine (#1) 07/04/202507/28, 08/02/2018, 07/31/2017, Additional history exists [facility]-Breast Cancer Screening 02/08/2027 04/0 06/2025, 02/08/2025, 12/16/2023, Additional history exists [facility]-Cervical Cancer Screening 02/17/2028 [facility]-Pap Smear 02/17/2028 02/16/2025, 02/17/2024 [facility]-DTaP,Tdap,and Td Vaccines (3 - Td [...] age to complete this topic Care Teams Heat Treat Worker Relationship Specialty Start Date End Date Devon Simpson MD [address] [place] [address] [address] [place] [address] PCP - General 03/16/21
--- OUTSIDE RECORDS SUMMARY | 2025-09-18 17:59 | XMS_ITS | Encounter Summary ---
Author Organization [facility] Address [address] [place] [address] Care Team Providers Care Linux Network Administrator Name Role Phone Devon Simpson MD Primary Care Provider [phone] Encounter Details Date Type Department Care Team (Late st Contact Info) Description 2025 Results Follow-Up [facility] OBGYN [address] [address] Dawson Connolly APRN [address] [facility] [address] [place] [phone] Social History Tobacco Use Types Packs/Day Years [...] Description 02/22/2026 3:30 PM EDT Office Visit [facility] OBGYN [address] [place] [address] Saloni Pereyra MD [address] [facility] [address] [place] [address] documented as of this encounter Visit Diagnoses Not on filedocumented in this encounter Care Teams Linux Network Administrator Relationship Specialty Start Date End Date Devon Simpson MD [address] [place] [facility] [address] [place] [address] PCP - General Internal Medicine 10/23/18 documented as of this encounter
--- OUTSIDE RECORDS SUMMARY | 2025-09-18 17:59 | XMS_ITS | Clinical Summary ---
[facility] Organization [facility] Address [address] [place] [address] Care Team Providers Care Freelance Court Stenographer Name Role Phone Devon Simpson MD Primary Care Provider [phone] Allergies Active Allergy Reactions Criticality Noted Date Comments Clarithromycin Hives High 02/05/2007 Lansoprazole Itching Low 03/26/2010 Levofloxacin Hives High 02/05/2007 Medications MULTIPLE VITAMIN PO Multiple Vitamin capsule Daily Active escitalopram (LEXAPRO) 10 MG tablet Take 1 tablet by mouth Daily. 04/24/2020 Active ibuprofen (ADVIL,MOTRIN) 600 MG tablet As Needed. Activ e montelukast (SINGULAIR) 10 MG tablet Take 1 tablet by mouth Daily. 04/24/2020 Active cetirizine (zyrTEC) 10 MG tablet Take 1 tablet by mouth Daily. Active Ventolin HFA 108 (90 Base) MCG/ACT inhaler Inhale See Admin Instructions. Inhale 2 puffs by mouth every 4 to 6 hours as needed 08/02/2020 Active Livalo 2 MG tablet tablet Take 1 tablet by mouth 2 (Two) Times a Week. 10/09/2021 Active pantoprazole (PROTONIX) 40 MG EC tablet Take 1 tablet by mouth Daily. 08/30/2022 Active Rybelsus 7 MG tablet 11/29/2022 Active vitamin E 100 UNIT capsule 11/25/2022 Active Active Problems No known active problems Family History Medical History Relation Name Comments Diabetes Father Hipolito Stroke Father Hipolito fro m it September 19, 2021 Colon cancer Maternal Grandfather William Martinez with it in his early 50's Cervical cancer Mother Breast cancer Neg Hx Ovarian cancer Neg Hx Uterine cancer Neg Hx Relation Name Status Comments Father Hipolito Maternal Grandfather William Martinez Mother Social History Tobacco Use Types Packs/Day Years Used Date Smoking Tobacco: Never Smokeless Tobacco: Never Tobacco Cessation:Counseling Given: Not Answered Alcohol Use Standard Drinks/Week Comments Never 0 (1 standard drink = 0.6 oz pur e alcohol) Comments No Sex and Gender Information Value Date Recorded Sex Assigned at Not on file Legal Sex Female 10:40 AM EDT Gender Identity Not on file Sexual Orientation Not on file Last Filed Vital Signs Vital Sign Reading Time Taken Comments Blood Pressure 102/78 02/16/2025 3:17 PM EDT Pulse 91 07/24/2020 1:48 PM EDT Temperature - - Respiratory Rate - - Oxygen Saturation 97% 07/24/2020 1:48 PM EDT Inhaled Oxygen Concentration - - Weight 119 kg (262 lb) 02/16/2025 3:17 PM EDT Height 167.6 cm (5' 6 ) 02/16/2025 3:17 PM EDT Body Mass Index 42.29 02/16/2025 3:17 PM EDT Plan of Treatment Upcoming Encounters Date Type Department Care Team (Late st Contact Info) Description 02/22/2026 3:30 PM EDT Office Visit [facility] [address] [place] [address] Carmen Pereyra MD [address] [address] Health Maintenance Due Date Last Done Comments COLOGUARD 2010 COLON CANCER SCREENING 5 YEA [address] SIGMOID[address] 2010 [address] COLONOGRAPHY 2010 FECAL OCCULT BLOOD TEST 2010 FIT Testing (1 year) 2010 Pneumococcal Vaccine 50+ (1 of 1 - PCV) 2015 ZOSTER VACCINE (1 of 2) 2015 ANNUAL PHYSICAL 07/24/2020 HEPATITIS C SCREENING 07/24/2020 INFLUENZA VACCINE 06/03/2025 08/08/2022, 08/02/2018 Annual Gynecologic Pelvic an d Breast Exam 02/17/2026 02/16/2025 MAMMOGRAM 2027 2025, 04/0 06/2025, 12/16/2023, Additional history exists PAP SMEAR 02/17/2028 02/16/2025, /04/2024, 11/09/2020 COLONOSCOPY 11/14/2028 11/14/2018, 02/01/2018 COLORECTAL CANCER SCREENING 11/14/2028 TDAP/TD VACCINES (4 - Td or Tdap) 11/23/2029 11/23/2019, 10/20/2008, 05/05/2002 Procedures Procedure Name Priority Date/Time Associated Diagnosis Comments LIQUID-BASED PAP SMEAR WITH HPV GENOTYPING REGARDLESS OF INTERPRETATION, [facility] ([facility]) Routine 02/16/2025 4:10 PM EDT ASCUS of cervix with negative high risk HPV MAMMO SCREENING DIGITAL TOMOSYNTHESIS BILATERAL W CAD Routine 02/08/2025 1:49 PM EDT Women's annual routine gynecological examination from Last 3 Months or Most Recently Relevant to Health Maintenance Results * LIQUID-BASED PAP SMEAR WITH HPV GENOTYPING REGARDLESS OF INTERPRETATION (ELVA,COR,MAD) (02/16/2025 4:10 PM EDT) Reference Lab Report [facility] [address] [place] [address] or [phone] Bayron Krishnamurthy M.D., Mobile Application Tester PATIENT NAME LABORATORY NO[facility] 6[address] VIANNEY DIAZ [id number] AGE SEX SSN CLIENT REF # [facility] 60 1965 F [id number] [address] REQUESTING Renuka [place] [address] CARMEN PEREYRA DATE COLLECTED DATE RECEIVED DATE REPORTED 02/16/2025 02/17/2025 02/22/2025 ThinPrep Pap with cube19gic Genius Imaging DIAGNOSIS: Negative for intraepithelial lesion or malignancy Multiple factors can influence accuracy of Pap tests; therefore, screening at regular intervals is necessary for early cancer detection. COMMENT: Benign cellular changes associated with atrophy are present. SPECIMEN ADEQUACY: SATISFACTORY FOR EVALUATION Transformation zone is present. Partially obscuring inflammation is present. SOURCE OF SPECIMEN: CERVICAL/ENDOCERV ICAL SLIDES: 1 CLINICAL HISTORY: ASCUS of cervix with negative high risk HPV HPV HR-HPV POOL: Negative The Aptima HPV assay is an in vitro nucleic acid amplification test for the qualitative detection of E6/E7 viral messenger RNA from 14 high risk types of HPV in cervical specimens. The high risk HPV types detected include: 16, 18, 31, 33, 35, 39, 45, 51, 52, 56, 58, 59, 66, 68 FOUNDRY HAND: SHREYA CLEMENTS (ASCP) CPT CODES: 14324, 62525 02/22/2025 11:17 AM EDT [facility] ThinPrep Vial Cervix uteri structure / Unknown Collection / Unknown 02/16/2025 4:10 PM EDT 02/16/2025 4:10 PM EDT Carmen Pereyra MD PATHOLOGY/CYTOLOGY ORDERABLES Fi nal Result [facility]
[address] [place] [address], * Mammo Screening Digital Tomosynthesis Bilateral With CAD (02/08/2025 1:49 PM EDT) Anatomical Region Laterality Modality Breast N/A Mammography 2025 2:01 PM EDT Impressions 2025 2:02 PM EDT Negative bilateral mammogram. RECOMMENDATION: Continue annual screening mammography. BI-RADS CATEGORY 1, NEGATIVE. CAD was utilized. The standard false-negative rate of mammography is between 10% and 25%. Complex patterns or increased breast density will markedly elevate the false-negative rate of mammography. A letter, in lay terminology, with the results of this exam will be mailed to the patient. 2025 2:[address] Niocle Sneed MD on Narrative 2025 2:02 PM EDT DIGITAL SCREENING MAMMOGRAM WITH TOMOSYNTHESIS HISTORY: Screening Mammography. Low dose full field digital breast tomosynthesis imaging was performed with 2D and 3D acquisitions consisting of bilateral CC and MLO views. Examination is compared to prior examination dating back to 10/06/2017. Examination is read in conjunction with computer aided detection. FINDINGS: The breast tissue is almost entirely fatty. No suspicious masses, microcalcifications or areas of architectural distortion are present. Carmen Pereyra MD IMG MAMMOGRAPHY ORDERABLES Final Result from Last 3 Months or Most Recently Relevant to Health Maintenance Insurance [id number] PPO Care Teams Freelance Court Stenographer Relationship Specialty Start Date End Date Devon Simpson MD [address] [facility] [address] [place] [address] PCP - General Internal Medicine 10/23/18
--- OUTSIDE RECORDS SUMMARY | 2025-09-18 18:00 | XMS_ITS | Referral Summary ---
Author Organization [employer] ([place], [place], [place], [place], [place]) Address [address] [place] [address] Care Team Providers Care Diesel Dragline Operator Name Role Phone Unavailable Primary Care Provider Unavailabl e Allergies Active Allergy Reactions Criticality Noted Date Comments Clarithromycin Hives,Itching High 05/19/2025 Levofloxacin Hives,Itching High 05/19/2025 Medications cetirizine (ZyrTEC) 10 MG tablet Take 1 tablet (10 mg total) by mouth daily. Active escitalopram (LEXAPRO) 10 MG tablet Take 1 tablet (10 mg total) by mouth daily. Active pitavastatin calcium (Livalo) 2 mg tab tablet Take 2 mg by mouth daily. Active ibuprofen (MOTRIN) 600 MG tablet as needed. Active montelukast (SINGULAIR) 10 mg tablet Take 1 tablet (10 mg total) by mouth nightly. Active multivitamin with minerals tablet Multiple Vitamin capsule Daily Active pantoprazole (PROTONIX) 40 MG tablet Take 1 tablet (40 mg total) by mouth Daily (0600). Active semaglutide (Rybelsus) 7 mg tab Take 7 mg by mouth daily. Active albuterol 90 mcg/actuation inhaler Inhale by mouth every 6 (six) hours as needed for wheezing. Active vitamin E 400 UNIT capsule Take 1 capsule (400 Units total) by mouth daily. Active metFORMIN (GLUCOPHAGE-XR) 500 MG 24 hr tablet 1 tablet (500 mg total). 03/25/2025 Active Active Problems Problem Noted Date Diagnosed Date S/P endometrial ablation Social History Tobacco Use Types Packs/Day Years Used Date Smoking Tobacco: Never Smokeless Tobacco: Never Tobacco Cessation:Counseling Given: Not Answered Alcohol Use Standard Drinks/Week Comments Never 0 (1 standard drink = 0.6 oz pur e alcohol) Comments Unknown Sex and Gender Information Value Date Recorded Sex Assigned at Not on file Legal Sex Female 2:14 PM CDT Gender Identity Not on file Sexual Orientation Not on file Last Filed Vital Signs Vital Sign Reading Time Taken Comments Blood Pressure 123/84 05/19/2025 3:04 PM EDT Pulse 90 05/19/2025 3:04 PM EDT Temperature - - Respiratory Rate - - Oxygen Saturation - - Inhaled Oxygen Concentration - - Weight 119.3 kg (263 lb) 05/19/2025 3:04 PM EDT Height 167.6 cm (5' 6 ) 05/19/2025 3:04 PM EDT Body Mass Index 42.45 05/19/2025 3:04 PM EDT Plan of Treatment Not on file Insurance [id number] [place] [address] BLUE CROSS/BLUE SHIELD
--- OUTSIDE RECORDS SUMMARY | 2025-09-18 18:00 | XMS_ITS ---
Author Organization Unknown ENCOUNTERS Encounter Performer Location Date Diagnosis Diagnosis Status Emergency [facility] [address] [place] [address] [id number] Pre Admit [facility] [address] [place] [address] [id number] *Note: Encounters from your own facility or health system may be excluded. Allergies, Adverse Reactions, Alerts Allergen Type Severity Identification Date clarithromycin drug allergy 4 [id number] levofloxacin drug allergy 4 [id number] Medications Name Date Quantity Days Supplied GPI Number
--- OUTSIDE RECORDS SUMMARY | 2025-09-18 18:00 | XMS_ITS | Encounter Summary ---
Author Organization [facility] Address [address] [place] [address] Care Team Providers Care Metal Roofing Mechanic Name Role Phone Devon Simpson MD Primary Care Provider [phone] Encounter Details Date Type Department Care Team (Latest Contact Info) Description 07/25/2025 Travel Social History Tobacco Use Types Packs/Day Years [...] 08/21/2026 11:30 AM EDT Ovarian Cancer Screening [facility] Gynecology [address] [facility] [place] [address] documented as of this encounter Visit Diagnoses Not on filedocumented in this encounter Care Teams Metal Roofing Mechanic Relationship Specialty Start Date End Date Devon Simpson MD [address] [facility] [address] [place] [address] PCP - General 03/16/21 documented as of this encounter
--- NOTE | 2025-09-18 18:01 | CT_ITS ---
PROCEDURE INFORMATION: Exam: CT Head Without Contrast Exam date and time: 09/18/2025 6:28 PM Age: 60 years old Clinical indication: Injury or trauma; Fall; Other: Pain TECHNIQUE: Imaging protocol: Computed tomography of the head without contrast. Radiation optimization: All CT scans at this facility use at least one of these dose optimization techniques: automated exposure control; mA and/or kV adjustment per patient size (includes targeted exams where dose is matched to clinical indication); or iterative reconstruction. COMPARISON: CT HEAD/BRAIN WO CON 09/18/2025 6:28 PM FINDINGS: Brain: No intracranial hemorrhage. Mild atrophic changes of the ventricles and subarachnoid spaces. Mild chronic small-vessel ischemic changes noted. No mass, mass effect or midline shift. Intracranial atherosclerotic changes are noted. Cerebral ventricles: See Brain finding. Paranasal sinuses: Visualized sinuses are unremarkable. No fluid levels. Mastoid air cells: Visualized mastoid air cells are well aerated. Bones: No acute fracture. Soft tissues: Scalp laceration with associated soft tissue swelling and air noted just anterior to the inferior left frontal bone and just above the nasal bone. No acute fracture. IMPRESSION: 1. Scalp laceration with associated soft tissue swelling and air noted just anterior to the inferior left frontal bone and just above the nasal bone. No acute fracture. 2. No acute intracranial abnormality. Chronic changes as above.
--- NOTE | 2025-09-18 18:01 | CT_ITS ---
PROCEDURE INFORMATION: Exam: CT Cervical Spine Without Contrast Exam date and time: 09/18/2025 6:31 PM Age: 60 years old Clinical indication: Injury or trauma; Fall; Other: Pain TECHNIQUE: Imaging protocol: Computed tomography of the cervical spine without contrast. Radiation optimization: All CT scans at this facility use at least one of these dose optimization techniques: automated exposure control; mA and/or kV adjustment per patient size (includes targeted exams where dose is matched to clinical indication); or iterative reconstruction. COMPARISON: CT FACIAL BONES WO CON 09/18/2025 6:29 PM FINDINGS: Bones: No evident fracture. Degenerative changes of the C-spine most pronounced at C5-C6 and C6-C7. Alignment and vertebral body heights are intact. Lungs: Lung apices are normal. Soft tissues: Unremarkable. IMPRESSION: Degenerative changes. No acute abnormality.
--- NOTE | 2025-09-18 18:01 | CT_ITS ---
PROCEDURE INFORMATION: Exam: CT Left Lower Extremity Without Contrast, Knee Exam date and time: 09/18/2025 6:35 PM Age: 60 years old Clinical indication: Injury or trauma; Fall; Other: Pain TECHNIQUE: Imaging protocol: CT of the left lower extremity without contrast was performed. Exam focused on the knee. Radiation optimization: All CT scans at this facility use at least one of these dose optimization techniques: automated exposure control; mA and/or kV adjustment per patient size (includes targeted exams where dose is matched to clinical indication); or iterative reconstruction. COMPARISON: No relevant prior studies available. FINDINGS: Bones/joints: Tricompartmental degenerative changes most pronounced involving the medial and patellofemoral compartments. No acute fracture. Soft tissues: Soft tissue edema noted anterior to the patella and infrapatellar region. IMPRESSION: Soft tissue swelling. No acute fracture.
--- NOTE | 2025-09-18 18:01 | CT_ITS ---
PROCEDURE INFORMATION: Exam: CT Maxillofacial Without Contrast Exam date and time: 09/18/2025 6:29 PM Age: 60 years old Clinical indication: Injury or trauma; Fall; Other: Pain TECHNIQUE: Imaging protocol: Computed tomography of the face without contrast. Radiation optimization: All CT scans at this facility use at least one of these dose optimization techniques: automated exposure control; mA and/or kV adjustment per patient size (includes targeted exams where dose is matched to clinical indication); or iterative reconstruction. COMPARISON: CT FACIAL BONES WO CON 09/18/2025 6:29 PM FINDINGS: Paranasal sinuses: No air-fluid levels. Orbital cavities: Orbits are normal. Globes are unremarkable. Bones: No acute fracture. Small radiodensities are noted on the skin surface anterior to the left orbit and the nasal bone consistent with foreign bodies on the skin surface. Soft tissues: Scalp laceration with associated soft tissue swelling and air anterior to the lower left frontal bone and extending to the midline just above the nasal bone. IMPRESSION: 1. Scalp laceration with associated soft tissue swelling and air anterior to the lower left frontal bone and extending to the midline just above the nasal bone. 2. Small potential metallic radiodensities are noted on the skin surface anterior to the left orbit and anterior to the nasal bone consistent with foreign bodies on the skin surface. 3. No acute fracture.
[2025-09-18 18:15] VITALS: BP 152/76; PULSE 87; O2SAT 98
--- NOTE | 2025-09-18 18:20 | ED_ITS ---
<Statement entered by Babs Kearney DO - 09/18/25 22:22> I was consulted by the DANI, and we discussed the complexity of problems being addressed. I approve the treatment and management plan for this patient's care in the emergency department, thus performing a substantial portion of the medical decision making. Babs Kearney DO Discharge Plan Disposition Patient Disposition: Home, Self-Care Prescriptions Prescriptions: No Action cetirizine 10 mg tablet 10 mg PO DAILY PRN vitamin E mixed 400 unit capsule PO pitavastatin calcium 2 mg tablet See Rx Instructions .ROUTE .COMPLEX Qty: 36 1RF Dose Instruction: TAKE 1 TABLET BY MOUTH THREE TIMES A WEEK Rx Instructions: TAKE 1 TABLET BY MOUTH THREE TIMES A WEEK metformin 500 mg tablet extended release 24 hr See Rx Instructions .ROUTE .COMPLEX Qty: 180 1RF Dose Instruction: TAKE 2 TABLETS BY MOUTH ONCE DAILY WITH EVENING MEAL FOR 90 DAYS Rx Instructions: TAKE 2 TABLETS BY MOUTH ONCE DAILY WITH EVENING MEAL FOR 90 DAYS montelukast 10 mg tablet See Rx Instructions .ROUTE .COMPLEX Qty: 90 3RF Dose Instruction: Take 1 tablet by mouth once daily Rx Instructions: Take 1 tablet by mouth once daily Rybelsus 7 mg tablet See Rx Instructions .ROUTE .COMPLEX Qty: 90 1RF Dose Instruction: Take 1 tablet by mouth once daily Rx Instructions: Take 1 tablet by mouth once daily pantoprazole 40 mg tablet,delayed release (DR/EC) See Rx Instructions .ROUTE .COMPLEX Qty: 90 1RF Dose Instruction: Take 1 tablet by mouth once daily Rx Instructions: Take 1 tablet by mouth once daily escitalopram oxalate 10 mg tablet See Rx Instructions .ROUTE .COMPLEX Qty: 90 1RF Dose Instruction: TAKE 1 TABLET BY MOUTH ONCE DAILY FOR DEPRESSION Rx Instructions: TAKE 1 TABLET BY MOUTH ONCE DAILY FOR DEPRESSION multivitamin [Multi-Day] 1 EACH tablet 1 ea PO DAILY Referrals Follow up/Referrals: Devon Simpson MD [Primary Care Provider, Medical] - See instructions Clinical Impressions Clinical Impression: Fall, Laceration Stand Alone Forms Stand Alone Forms: Work/School Release Instructions Patient Instructions: DI for Laceration Repair, How to Prevent Falls Print Language Print Language: Yoruba Discharge ED Provider: Babs Kearney General Adult HPI <Maureen Silverio (ED), DIRECTOR OF ORTHOPEDICS - Last Filed: 09/18/25 20:16> General Chief complaint: Wound/Laceration Stated complaint: AO 09/18 Head laceration Time Seen by Provider: 09/18/25 18:20 Mode of Arrival: Ambulatory Source of Information: Patient and Spouse Description of Symptoms (Recalled from ER Triage Doc. by RN): otf presents with a large laceration to the forehead. she state dshe was moving boxes and tripped, striking her head on the ground. History of Present Illness HPI narrative: 60-year-old female presents to the ED today for complaint of falling over a plastic bag and hitting her head on the ground. She has a large plaque on her forehead and a small 1 on her nose. She does also have pain in her left knee. She has been taking care of her mom and has been really tired and was trying to get things done and fell. She is alert and oriented x 4. Related Data Home Medications ?Medication ?Instructions ?Recorded ?Confirmed multivitamin (Multi-Day tablet) 1 ea PO DAILY Suppleme nt 02/19/18 08/23/25 cetirizine 10 mg tablet 10 mg PO DAILY PRN 04/27/24 08/23/25 vitamin E mixed 400 unit capsule unit PO 04/27/2408/04 Previous Rx's ?Medication ?Instructions ?Recorded pitavastatin calcium 2 mg tablet See Rx Instructions . Route 12/24/24 .COMPLEX #36 tabs metformin 500 mg tablet,extended See Rx Instructions . Route 03/24/25 release 24 hr .COMPLEX #180 tabs montelukast 10 mg tablet See Rx Instructions .Route 0 03/24/25 .COMPLEX #90 tabs semaglutide 7 mg tablet (Rybelsus) See Rx Instructions .Route 06/02/25 .COMPLEX #90 tabs pantoprazole 40 mg tablet,delayed See Rx Instructions .Route 06/08/25 release .COMPLEX #90 tabs escitalopram oxalate 10 mg tablet See Rx Instructions .Route 09/12/25 .COMPLEX #90 tabs Allergies Allergy/AdvReac Type Severity Reaction Status Date / Time clarithromycin (From Biaxin) Allergy Severe Hives Verified 08/23/25 13:39 levofloxacin (From Levaquin) Allergy Severe Hives Verified 08/23/25 13:39 PFS <Maureen Silverio (ED), DIRECTOR OF ORTHOPEDICS - Last Filed: 09/18/25 20:16> [facility] Disclaimer: The information contained in this section may have been updated after the patient was seen, as this information can be updated by other users. Social History Smoking Status: Never smoker alcohol intake: current alcohol intake frequency: holidays/special occasions only current occupational status: retired Travel in the last 8 weeks?: Inside the [place] caffeine: Yes Have you lived/traveled outside [place] in past 30 days?: No Contact w/someone who lives/traveled outside [place] past 30 days?: No Exposure to someone with infectious disease in past 14 days?: No Do you have a fever (greater than 100.4 F or 38 C)?: No Have you tested positive for COVID-19?: No Exposed to someone with COVID-19 in past 14 days?: No Do you have a sore throat?: No Do you have a cough?: No Do you have any weakness?: No Do you have any diarrhea?: No Are you experiencing any unusual bleeding?: No Do you have any muscle aches/pain?: No Do you have any abdominal pain?: No Are you experiencing loss of taste or smell?: No Other Medical History Have you received the Pneumonia Vaccine: No <Maureen Silverio (ED), DIRECTOR OF ORTHOPEDICS - Last Filed: 09/18/25 20:16> ROS Obtained: Yes Systems reviewed as appropriate & no additional complaints except as documented Constitutional Constitutional: Reports as per HPI Physical Exam <Maureen Silverio (ED), DIRECTOR OF ORTHOPEDICS - Last Filed: 09/18/25 20:16> General General appearance: alert Head Head exam: other (Laceration to her forehead and her nose) Eye Eye exam: Present PERRL and EOMI ENT ENT exam: Present normal oropharynx and mucous membranes moist Neck Neck exam: Present full ROM and trachea midline Respiratory Respiratory exam: Present normal lung sounds bilaterally Cardiovascular Cardiovascular exam: Present regular rate, normal rhythm, normal heart sounds, +S1 and +S2 Extremities Exam Extremities exam: Present normal inspection, full ROM and normal capillary refill Neurological Exam Neurological exam: Present alert and oriented X3 Skin Skin exam: Present warm and dry Medical Decision Making <Maureen Silverio (ED), DIRECTOR OF ORTHOPEDICS - Last Filed: 09/18/25 20:16> Medical Records Screening: Per USPSTF and CDC recommendations, given the prevalence of disease in our region, it is our hospital?s policy to screen for HIV and viral Hepatitis for all patients aged 18 and over and those with ongoing risk factors. José Inquiry Pt receiving controlled substance: No José was queried for this patient: No Vital Signs: 09/18/25 17:50 09/18/25 18:15 09/18/25 19:00 Temperature 98.2 F Temperature Source Oral Pulse Rate 87 82 Pulse Rate [Right Radial] 87 Respiratory Rate 20 Blood Pressure 152/76 H Blood Pressure [Right Arm] 147/81 H Blood Pressure Mean Blood Pressure Mean [Right Arm] 103 Blood Pressure Source [Right Arm] Automatic Cuff Blood Pressure Position [Right Arm] Sitting 02 Sat by Pulse Oximetry 100 98 97 Oxygen Delivery Method Room Air Room Air Room Air 09/18/25 19:00 09/18/25 19:15 09/18/25 19:16 Temperature Temperature Source Pulse Rate 89 Pulse Rate [Right Radial] Respiratory Rate Blood Pressure 145/70 H 125/82 Blood Pressure [Right Arm] Blood Pressure Mean 110 97 Blood Pressure Mean [Right Arm] Blood Pressure Source [Right Arm] Blood Pressure Position [Right Arm] 02 Sat by Pulse Oximetry 97 Oxygen Delivery Method Room Air 09/18/25 19:16 09/18/25 20:14 Temperature 98.2 F Temperature Source Pulse Rate 82 84 Pulse Rate [Right Radial] Respiratory Rate 18 Blood Pressure 116/72 Blood Pressure [Right Arm] Blood Pressure Mean Blood Pressure Mean [Right Arm] Blood Pressure Source [Right Arm] Blood Pressure Position [Right Arm] 02 Sat by Pulse Oximetry 98 Oxygen Delivery Method Room Air Room Air Orders (Tests/Meds): ED MEDICATIONS Discontinued Medications Generic Name Dose Route Start Last Admin Trade Name Freq PRN Reason Stop Dose Admin Acetaminophen 1,000 mg 09/18/25 18:20 09/18/25 18:24 Acetaminophen 500mg Tab PO 09/18/25 18:21 1,000 mg ONCE ONE Administration Cocaine HCl 1 ml 09/18/25 18:18 09/18/25 18:41 Cocaine 4% Topical Soln 4ml Bottle TP 09/18/25 18:19 1 ml ONCE ONE Administration Epinephrine HCl 1 mg 09/18/25 18:18 09/18/25 18:42 Epinephrine 1 Mg/Ml Ampul TP 09/18/25 18:19 1 mg ONCE ONE Administration Ibuprofen 800 mg 09/18/25 18:22 09/18/25 18:24 Ibuprofen 800 Mg Tablet PO 09/18/25 18:23 800 mg ONCE ONE Administration Lidocaine HCl 1 ml 09/18/25 18:18 09/18/25 18:42 Lidocaine 2% Urojet 10ml TP 09/18/25 18:19 1 ml ONCE ONE Administration Tetanus/Reduced Diphtheria/Acell Pertussis 0.5 ml 09/18/25 19:06 09/18/25 20:04 Tet/Diphth/Pert-Adult 0.5ml Syringe IM 09/18/25 19:07 0.5 ml .ONCE ONE Administration ORDERS Category Date Time Status CT cervical spine wo con Stat Cat Scan 09/18/25 18:[address] facial bones wo con Stat Cat Scan 09/18/25 18:[address] head/brain wo con Stat Cat Scan 09/18/25 18:[address] knee LT wo con Stat Cat Scan 09/18/25 18:01 Completed Medical Decision Narrative: patient is a 60-year-old female presenting to the emergency department for evaluation of fall that was mechanical, she fell over a bag and struck her face causing a laceration to her nose and her head. Patient is hemodynamically stable and nontoxic-appearing upon arrival, afebrile. Differential diagnosis includes fractures to her face, lacerations in need of repair, head bleed, neck fractures among others. Workup will be conducted with specific imaging. Initial inventions include analgesics. CT scans were completed please see read for radiology read. Patient's laceration was cleaned out and repaired with absorbable sutures. Patient was given return precautions and suture care as well as wound care. Patient will follow-up with her PCP if needed. Patient is safe for discharge home. <Babs Kearney, DO - Last Filed: 09/18/25 22:22> Vital Signs: 09/18/25 17:50 09/18/25 18:15 09/18/25 19:00 Temperature 98.2 F Temperature Source Oral Pulse Rate 87 82 Pulse Rate [Right Radial] 87 Respiratory Rate 20 Blood Pressure 152/76 H Blood Pressure [Right Arm] 147/81 H Blood Pressure Mean Blood Pressure Mean [Right Arm] 103 Blood Pressure Source [Right Arm] Automatic Cuff Blood Pressure Position [Right Arm] Sitting 02 Sat by Pulse Oximetry 100 98 97 Oxygen Delivery Method Room Air Room Air Room Air 09/18/25 19:00 09/18/25 19:15 09/18/25 19:16 Temperature Temperature Source Pulse Rate 89 Pulse Rate [Right Radial] Respiratory Rate Blood Pressure 145/70 H 125/82 Blood Pressure [Right Arm] Blood Pressure Mean 110 97 Blood Pressure Mean [Right Arm] Blood Pressure Source [Right Arm] Blood Pressure Position [Right Arm] 02 Sat by Pulse Oximetry 97 Oxygen Delivery Method Room Air 09/18/25 19:16 09/18/25 20:14 Temperature 98.2 F Temperature Source Pulse Rate 82 84 Pulse Rate [Right Radial] Respiratory Rate 18 Blood Pressure 116/72 Blood Pressure [Right Arm] Blood Pressure Mean Blood Pressure Mean [Right Arm] Blood Pressure Source [Right Arm] Blood Pressure Position [Right Arm] 02 Sat by Pulse Oximetry 98 Oxygen Delivery Method Room Air Room Air Orders (Tests/Meds): ED MEDICATIONS Discontinued Medications Generic Name Dose Route Start Last Admin Trade Name Freq PRN Reason Stop Dose Admin Acetaminophen 1,000 mg 09/18/25 18:20 09/18/25 18:24 Acetaminophen 500mg Tab PO 09/18/25 18:21 1,000 mg ONCE ONE Administration Cocaine HCl 1 ml 09/18/25 18:18 09/18/25 18:41 Cocaine 4% Topical Soln 4ml Bottle TP 09/18/25 18:19 1 ml ONCE ONE Administration Epinephrine HCl 1 mg 09/18/25 18:18 09/18/25 18:42 Epinephrine 1 Mg/Ml Ampul TP 09/18/25 18:19 1 mg ONCE ONE Administration Ibuprofen 800 mg 09/18/25 18:22 09/18/25 18:24 Ibuprofen 800 Mg Tablet PO 09/18/25 18:23 800 mg ONCE ONE Administration Lidocaine HCl 1 ml 09/18/25 18:18 09/18/25 18:42 Lidocaine 2% Urojet 10ml TP 09/18/25 18:19 1 ml ONCE ONE Administration Tetanus/Reduced Diphtheria/Acell Pertussis 0.5 ml 09/18/25 19:06 09/18/25 20:04 Tet/Diphth/Pert-Adult 0.5ml Syringe IM 09/18/25 19:07 0.5 ml .ONCE ONE Administration ORDERS Category Date Time Status CT cervical spine wo con Stat Cat Scan 09/18/25 18:[address] facial bones wo con Stat Cat Scan 09/18/25 18:[address] head/brain wo con Stat Cat Scan 09/18/25 18:[address] knee LT wo con Stat Cat Scan 09/18/25 18:01 Completed Medical Decision Narrative: Patient is a 60-year-old female presenting to the emergency department for evaluation of fall that was mechanical, she fell over a bag and struck her face causing a laceration to her nose and her head. Patient is hemodynamically stable and nontoxic-appearing upon arrival, afebrile. Differential diagnosis includes fractures to her face, lacerations in need of repair, head bleed, neck fractures among others. Workup will be conducted with specific imaging. Initial inventions include analgesics. Patient's fall was mechanical in nature, no concern for syncope therefore labs were not felt to be indicated at this time. CT scans were completed and were reviewed and interpreted by myself and showed no acute facial fractures, intracranial pathology, cervical spine pathology or any bony pathology to the left lower extremity. Patient's tetanus was updated. Patient's laceration was cleaned out and repaired with absorbable sutures. Patient was given return precautions and suture care as well as wound care. Patient will follow-up with her PCP if needed. Patient is safe for discharge home. Procedures <Maureen Silverio (ED), DIRECTOR OF ORTHOPEDICS - Last Filed: 09/18/25 20:16> Laceration Laceration 1: Site: face Size (cm): 9 Description: irregular Local Anesthetic: lidocaine 2% Pre-repair: irrigated extensively Skin layer closed with: nylon Size (cm): 6-0 Number of sutures: 15 Technique: simple, interrupted Critical Care <Maureen Silverio (ED), DIRECTOR OF ORTHOPEDICS - Last Filed: 09/18/25 20:16> Critical Care Time Critical Care Time: No
[2025-09-18] MEDS: IBUPROFEN 800 MG TABLET PO (18:24)
[2025-09-18] MEDS: ACETAMINOPHEN 500MG TAB 1000 MG PO (18:24)
[2025-09-18] MEDS: COCAINE 4% TOPICAL SOLN 4ML BOTTLE 1 ML TP (18:41)
[2025-09-18] MEDS: LIDOCAINE 2% UROJET 10ML TP (18:42)
[2025-09-18 19:00] VITALS: BP 145/70; PULSE 82; O2SAT 97
[2025-09-18 19:15] VITALS: PULSE 89; O2SAT 97
[2025-09-18 19:16] VITALS: BP 125/82; PULSE 82; O2SAT 98
[2025-09-18] MEDS: TET/DIPHTH/PERT-ADULT 0.5ML SYRINGE 0.5 ML IM (20:04)
[2025-09-18 20:14] VITALS: BP 116/72; PULSE 84; RESP 18; TEMP 36.8; O2SAT 99
--- NOTE | 2025-09-18 20:16 | PC.NURSE ---
Pt hair and forehead cleansed, pt is ready for d/c
== END 2025-09-18 20:23 | disposition home or self-care (01) ==
PROVIDERS: Emergency Provider Student in an Organized Health Care Education/Training Program; PCP Internal Medicine
DX: S01.91XA Laceration without foreign body of unspecified part of head, initial encounter (principal); W19.XXXA Unspecified fall, initial encounter; I10 Essential (primary) hypertension
CPT/HCPCS: 70450; 70486; 72125; 73700; 90471; 90715; 96365; 96375; 99285; J0169; J2003